=== PATIENT | male | born 1975 | race Caucasian/White ===

== ENCOUNTER 2016-07-19 22:16 | Emergency (ER) | payer OTHER ==
--- NOTE | 2016-07-19 22:47 | DIAGNOSTIC IMAGING REPORT ---
PROCEDURE: XR CHEST 1 VIEW INDICATION: CHEST PAIN, initial encounter TECHNIQUE: Portable AP view 10:32 p.m. COMPARISON: None. FINDINGS: Lungs are clear. Mild cardiomegaly. Mediastinum and pulmonary vessels are normal. Thorax is normal. IMPRESSION: 1. Mild cardiomegaly .
--- NOTE | 2016-07-20 02:06 | ED CLINICAL REPORT ---
Clinical Report - Physicians/Mid Levels [facility] [address] [place] [address] 07/19/2016 22:16 Patient: REJI MAYS Arrived- By private vehicle. Historian- patient. HISTORY OF PRESENT ILLNESS Chief Complaint: CHEST PAIN. This started today and is still present and worsening. It was abrupt in onset and has been constant but is not gone now. Onset during rest. At its maximum, severity described as moderate. When seen in the E.D., severity described as moderate. Modifying factors- worsened by supine position. Relieved by upright position. No nausea, vomiting or diaphoresis. He has had difficulty breathing. The patient has had additional chest pain. Similar symptoms previously: None. Recent medical care: Not recently seen/assessed. REVIEW OF SYSTEMS No fever or chills. All systems otherwise negative, except as recorded above. PAST HISTORY See nurses notes. Medications: Reglan Oral. PriLOSEC Oral. Lisinopril Oral. Allergies: Hydrocodone. Mild(itching). SOCIAL HISTORY Smoker- current status unknown. History of occasional drug use: marijuana. No alcohol use. No recent travel. Is a local resident. FAMILY HISTORY History of heart disease in multiple family members (not sure exactly what kind of heart disease. possible CHF and [place].). No history of aortic aneurysm or dissection. ADDITIONAL NOTES The nursing notes have been reviewed. PHYSICAL EXAM Vital Signs: 07/19/2016 22:19 BP: 108/81. HR: 106. RR: 20. O2 saturation: 98%. Pain level now: 8/10. Blood pressure normal. Oxygen saturation normal. Appearance: Alert. Oriented X3. Patient in mild distress. Eyes: Pupils equal, round and reactive to light. Eyes normal inspection. ENT: Ears normal. Nose normal. Pharynx normal. Neck: Normal inspection. Neck supple. CVS: Normal heart rate and rhythm. Heart sounds normal. Pulses normal. Respiratory: No respiratory distress. Breath sounds normal. Chest nontender. No rales, rhonchi or wheezes. Abdomen: Soft and nontender. Bowel sounds normal. No organomegaly. No mass. Back: Normal external inspection. Skin: Skin warm and dry. Normal skin color. No rash. Normal skin turgor. Extremities: Extremities exhibit normal ROM. No clubbing present or lower extremity edema. No calf tenderness. No lower extremity edema. Neuro: Oriented X 3. No motor deficit. No sensory deficit. LABS, X-RAYS, AND EKG EKG: No acute ischemia. Wide-complex tachycardia. Sinus tachycardia. Normal P waves. Normal SARIKA. Normal QRS complex. LBBB (162). Normal axis. appropriate discordance. does not meet brugada criteria. Changes present when compared to prior EKG. (January 21, 2009 new LBBB since then). The study has been interpreted contemporaneously by me. The study has been independently viewed by me. The EKG appears to be a good tracing. Chest X-ray: Mild vascular congestion present. Cardiomegaly. No infiltrate. No fracture. No bony lesion present. (possible mild heart failure. No consolidations.). Views: PA and lateral. The X-rays were independently viewed by me and interpreted contemporaneously by me. Chest CT: (right pleural effusion. pulmonary congestion. signs of heart failure. no PE.). Chest CT performed with contrast. The study was independently viewed by me and interpreted by the radiologist. The study was discussed with the radiologist (via fax). Laboratory Tests: CBC w Diff: (ANGE: 07/19/2016 22:25) ( MsgRcvd 07/19/2016 22:40) Final results Test Result Flag Units (Reference) WHITE BLOOD COUNT 9.5 K/uL (4.5-11.5) RED BLOOD COUNT 4.13 L M/uL (4.50-5.90) HEMOGLOBIN 13.6 gm/dL (13.5-17.5) HEMATOCRIT 41.0 % (41.0-53.0) MEAN CELL VOLUME 99 fL (80-100) MEAN CORPUSCULAR HGB 33 pg (26-34) MEAN CORPUSCULAR HGB CONC 33 g/dL (31-37) RED CELL DISTRIBUTION WIDTH 13.8 % (11.6-14.8) PLATELET COUNT 364 K/uL (150-400) NEUTROPHIL % 69.4 % (50-75) LYMPH % 24.3 L % (25-40) MONO % 5.5 % (3-14) EOSINOPHIL % 0.4 % (0-4) BASOPHIL % 0.4 % (0-2) [id number]: (ANGE: 07/19/2016 22:25) ( [facility] 07/19/2016 23:25) Final results Test Result Flag Units (Reference) D-DIMER QUANTITATIVE 2.20 H ug/mLFEU (0.27-0.52) The primary value of this quantitative assay relates toits negative predictive value (i.e. exclusion) of pulmonaryembolism/deep vein thrombosis/DIC.Elevated levels of d-dimer may also occur with:, age, cancer, inflammation, liver disease,post-op, infection, hematoma, coronary disease, peripheralarteriopathy, bleeding disorders and thrombolytic treatment.Results should be correlated with other clinical andradiological data.Testing Methodology: Latex Immunoassay BNP: (ANGE: 07/19/2016 22:25) ( [facility] 07/19/2016 23:35) Final results Test Result Flag Units (Reference) B-TYPE NATRIURETIC PEPTIDE 1310 H pg/ml (5-100) CHEM 13 PANEL: (ANGE: 07/19/2016 22:25) ( [facility] 07/19/2016 23:06) Final results Test Result Flag Units (Reference) GLUCOSE 105 mg/dL (70-110) BUN 8 mg/dL (7-18) CREATININE 0.7 mg/dL (0.6-1.3) Estimated GFR >60 mL/min Estimated GFR- >60 mL/min Note: Persistent reduction over 3 months in eGFR<60 mL/min/1.73 m2 defines CKD. Patients with eGFR values>=60 mL/min/1.73 m2 may also have CKD if evidence ofpersistent proteinuria. Additional information may be foundat [email or web address].org. SODIUM 141 mmol/L (136-145) POTASSIUM 4.3 mmol/L (3.5-5.1) CHLORIDE 103 mmol/L (98-107) CARBON DIOXIDE 29 mmol/L (21-32) CALCIUM 8.7 mg/dL (8.5-10.1) TOTAL PROTEIN 8.2 g/dL (6.4-8.2) ALBUMIN 3.9 g/dL (3.3-5.0) BILIRUBIN, TOTAL 0.4 mg/dL (0.0-1.0) ALKALINE PHOSPHATASE 130 H U/L (46-116) AST (SGOT) 65 H U/L (15-37) ALT (SGPT) 59 U/L (12-78) MAGNESIUM 1.8 mg/dL (1.8-2.4) CPK 81 U/L (24-260) TROPONIN I <0.05 ng/mL (0.00-1.5) TROPONIN REFERENCE RANGE:<0.1 NEGATIVE0.1-1.5 INDETERMINANT>1.5 POSITIVE . PROGRESS AND PROCEDURES Course of Care: The patients is a 41 yo male with hx of smoking presenting for evaluation of shortness of breath and chest pain. patient with symptoms that started last night. States it has not gotten better since then. Differential diagnosis includes CHF, AMI, and PE. Patient agreeable to treatment and plan. EKG shows new onset LBBB from last EKG in 2008. No known cardiac history. Patient hypoxic on room air. Goes down to 80s. Needs sup O2. Patient found to have elevated BNP and d-dimer. CT scan ordered. Unable to give nitro due to BP. Will monitor. CT scan does not show signs of PE or disection but does confirm CHF. Patient informed of findings. Consult placed out to cardiology. Very unusual for patient's age. Cardiology over at [place] recommended transfer and lasix. Spoke with hospitalist as well who was agreeable to the plan. Informed written consent obtained. Call back from house sup. about bed status. No tele beds avaiable. Process was repeated with [facility] who have accepting hospitalist, consulting manager plumbing, and available beds. Patient informed of the change and are agreeable. Spoke with family and patient about work up, diagnosis, and plan of care. Critical care performed (65 minutes). Time is exclusive of separately billable procedures. Time includes: direct patient care, patient reassessment, coordination of patient care, interpretation of data (laboratory data and chest xrays), review of patient's medical records, medical consultation, family consultation regarding treatment decisions and documentation of patient care. Disposition: Benefits, risks and alternatives to transfer explained to patient and family. Transferred to [facility]. CLINICAL IMPRESSION 07/20/2016 03:35 BP: 104/60. HR: 90. RR: 22. O2 saturation: 96%. Pain level now: 4/10. acute new onset CHF Right pleural effusion new onset LBBB hypoxia, acute. (Electronically signed by Jorge Reese Dr. 07/22/2016 17:12)
--- NOTE | 2016-07-20 02:06 | ED CLINICAL REPORT ---
Clinical Report - Physicians/Mid Levels [facility] [address] [place] [address] 07/19/2016 22:16 Patient: REJI MAYS Arrived- By private vehicle. Historian- patient. HISTORY OF PRESENT ILLNESS Chief Complaint: CHEST PAIN. This started today and is still present and worsening. It was abrupt in onset and has been constant but is not gone now. Onset during rest. At its maximum, severity described as moderate. When seen in the E.D., severity described as moderate. Modifying factors- worsened by supine position. Relieved by upright position. No nausea, vomiting or diaphoresis. He has had difficulty breathing. The patient has had additional chest pain. Similar symptoms previously: None. Recent medical care: Not recently seen/assessed. REVIEW OF SYSTEMS No fever or chills. All systems otherwise negative, except as recorded above. PAST HISTORY See nurses notes. Medications: Reglan Oral. PriLOSEC Oral. Lisinopril Oral. Allergies: Hydrocodone. Mild(itching). SOCIAL HISTORY Smoker- current status unknown. History of occasional drug use: marijuana. No alcohol use. No recent travel. Is a local resident. FAMILY HISTORY History of heart disease in multiple family members (not sure exactly what kind of heart disease. possible CHF and [place].). No history of aortic aneurysm or dissection. ADDITIONAL NOTES The nursing notes have been reviewed. PHYSICAL EXAM Vital Signs: 07/19/2016 22:19 BP: 108/81. HR: 106. RR: 20. O2 saturation: 98%. Pain level now: 8/10. Blood pressure normal. Oxygen saturation normal. Appearance: Alert. Oriented X3. Patient in mild distress. Eyes: Pupils equal, round and reactive to light. Eyes normal inspection. ENT: Ears normal. Nose normal. Pharynx normal. Neck: Normal inspection. Neck supple. CVS: Normal heart rate and rhythm. Heart sounds normal. Pulses normal. Respiratory: No respiratory distress. Breath sounds normal. Chest nontender. No rales, rhonchi or wheezes. Abdomen: Soft and nontender. Bowel sounds normal. No organomegaly. No mass. Back: Normal external inspection. Skin: Skin warm and dry. Normal skin color. No rash. Normal skin turgor. Extremities: Extremities exhibit normal ROM. No clubbing present or lower extremity edema. No calf tenderness. No lower extremity edema. Neuro: Oriented X 3. No motor deficit. No sensory deficit. LABS, X-RAYS, AND EKG EKG: No acute ischemia. Wide-complex tachycardia. Sinus tachycardia. Normal P waves. Normal SARIKA. Normal QRS complex. LBBB (162). Normal axis. appropriate discordance. does not meet brugada criteria. Changes present when compared to prior EKG. (January 21, 2009 new LBBB since then). The study has been interpreted contemporaneously by me. The study has been independently viewed by me. The EKG appears to be a good tracing. Chest X-ray: Mild vascular congestion present. Cardiomegaly. No infiltrate. No fracture. No bony lesion present. (possible mild heart failure. No consolidations.). Views: PA and lateral. The X-rays were independently viewed by me and interpreted contemporaneously by me. Chest CT: (right pleural effusion. pulmonary congestion. signs of heart failure. no PE.). Chest CT performed with contrast. The study was independently viewed by me and interpreted by the radiologist. The study was discussed with the radiologist (via fax). Laboratory Tests: CBC w Diff: (ANGE: 07/19/2016 22:25) ( MsgRcvd 07/19/2016 22:40) Final results Test Result Flag Units (Reference) WHITE BLOOD COUNT 9.5 K/uL (4.5-11.5) RED BLOOD COUNT 4.13 L M/uL (4.50-5.90) HEMOGLOBIN 13.6 gm/dL (13.5-17.5) HEMATOCRIT 41.0 % (41.0-53.0) MEAN CELL VOLUME 99 fL (80-100) MEAN CORPUSCULAR HGB 33 pg (26-34) MEAN CORPUSCULAR HGB CONC 33 g/dL (31-37) RED CELL DISTRIBUTION WIDTH 13.8 % (11.6-14.8) PLATELET COUNT 364 K/uL (150-400) NEUTROPHIL % 69.4 % (50-75) LYMPH % 24.3 L % (25-40) MONO % 5.5 % (3-14) EOSINOPHIL % 0.4 % (0-4) BASOPHIL % 0.4 % (0-2) [id number]: (ANGE: 07/19/2016 22:25) ( [facility] 07/19/2016 23:25) Final results Test Result Flag Units (Reference) D-DIMER QUANTITATIVE 2.20 H ug/mLFEU (0.27-0.52) The primary value of this quantitative assay relates toits negative predictive value (i.e. exclusion) of pulmonaryembolism/deep vein thrombosis/DIC.Elevated levels of d-dimer may also occur with:, age, cancer, inflammation, liver disease,post-op, infection, hematoma, coronary disease, peripheralarteriopathy, bleeding disorders and thrombolytic treatment.Results should be correlated with other clinical andradiological data.Testing Methodology: Latex Immunoassay BNP: (ANGE: 07/19/2016 22:25) ( [facility] 07/19/2016 23:35) Final results Test Result Flag Units (Reference) B-TYPE NATRIURETIC PEPTIDE 1310 H pg/ml (5-100) CHEM 13 PANEL: (ANGE: 07/19/2016 22:25) ( [facility] 07/19/2016 23:06) Final results Test Result Flag Units (Reference) GLUCOSE 105 mg/dL (70-110) BUN 8 mg/dL (7-18) CREATININE 0.7 mg/dL (0.6-1.3) Estimated GFR >60 mL/min Estimated GFR- >60 mL/min Note: Persistent reduction over 3 months in eGFR<60 mL/min/1.73 m2 defines CKD. Patients with eGFR values>=60 mL/min/1.73 m2 may also have CKD if evidence ofpersistent proteinuria. Additional information may be foundat [email or web address]. SODIUM 141 mmol/L (136-145) POTASSIUM 4.3 mmol/L (3.5-5.1) CHLORIDE 103 mmol/L (98-107) CARBON DIOXIDE 29 mmol/L (21-32) CALCIUM 8.7 mg/dL (8.5-10.1) TOTAL PROTEIN 8.2 g/dL (6.4-8.2) ALBUMIN 3.9 g/dL (3.3-5.0) BILIRUBIN, TOTAL 0.4 mg/dL (0.0-1.0) ALKALINE PHOSPHATASE 130 H U/L (46-116) AST (SGOT) 65 H U/L (15-37) ALT (SGPT) 59 U/L (12-78) MAGNESIUM 1.8 mg/dL (1.8-2.4) CPK 81 U/L (24-260) TROPONIN I <0.05 ng/mL (0.00-1.5) TROPONIN REFERENCE RANGE:<0.1 NEGATIVE0.1-1.5 INDETERMINANT>1.5 POSITIVE . PROGRESS AND PROCEDURES Course of Care: The patients is a 41 yo male with hx of smoking presenting for evaluation of shortness of breath and chest pain. patient with symptoms that started last night. States it has not gotten better since then. Differential diagnosis includes CHF, AMI, and PE. Patient agreeable to treatment and plan. EKG shows new onset LBBB from last EKG in 2008. No known cardiac history. Patient hypoxic on room air. Goes down to 80s. Needs sup O2. Patient found to have elevated BNP and d-dimer. CT scan ordered. Unable to give nitro due to BP. Will monitor. CT scan does not show signs of PE or disection but does confirm CHF. Patient informed of findings. Consult placed out to cardiology. Very unusual for patient's age. Cardiology over at [facility] recommended transfer and lasix. Spoke with hospitalist as well who was agreeable to the plan. Informed written consent obtained. Call back from house sup. about bed status. No tele beds avaiable. Process was repeated with [facility] who have accepting hospitalist, consulting church musician, and available beds. Patient informed of the change and are agreeable. Spoke with family and patient about work up, diagnosis, and plan of care. Critical care performed (65 minutes). Time is exclusive of separately billable procedures. Time includes: direct patient care, patient reassessment, coordination of patient care, interpretation of data (laboratory data and chest xrays), review of patient's medical records, medical consultation, family consultation regarding treatment decisions and documentation of patient care. Disposition: Benefits, risks and alternatives to transfer explained to patient and family. Transferred to [facility]. CLINICAL IMPRESSION 07/20/2016 03:35 BP: 104/60. HR: 90. RR: 22. O2 saturation: 96%. Pain level now: 4/10. acute new onset CHF Right pleural effusion new onset LBBB hypoxia, acute. (Electronically signed by Jorge Reese Dr. 07/22/2016 17:12)
--- NOTE | 2016-07-20 02:06 | ED NURSING NOTES ---
Clinical Report - Nurses [facility] [address] [place] [address] 07/19/2016 22:16 Patient: REJI MAYS TRIAGE Triage time 22:Jul 19 2016. Acuity: LEVEL 3. Chief Complaint: CHEST PAIN and SHORTNESS OF BREATH. SEPSIS SCREEN: Sepsis Screen: negative. Negative (no infection suspected/documented). ZENIA COMA SCORE: Zenia Coma Scale: 15- eyes open spontaneously (4); best verbal response- oriented x 4 (5); best motor response- obeys commands (6). --22:24 Kiara Putnam 22:19 07/19/16. BP: 108/81. HR: 106. RR: 20. O2 saturation: 98% on room air. Pain level now: 8/10. Additional comments: Heavy pain . --22:24 Kiara Putnam. Weight: 63.5 kg stated. Height/Length: 68 inches Per Patient. BMI: 21.3. --22:23 Kiara Putnam. Medications Lisinopril Oral. --22:21 Kiara Putnam PriLOSEC Oral. --22:21 Kiara Putnam Reglan Oral. --22:21 Kiara Putnam. Allergies Hydrocodone. Mild(itching) --22:21 Kiara Putnam. History Arrived by private vehicle. Historian: patient. Accompanied by family. Primary physician ([facility]). This started yesterday. ( Patient reports he began having chest pain and shortness of breath yesterday. He states that he has been sick so he thought maybe it had to do with that. He states that it has not been relieved and he began to feel very short of breath today.). He has had difficulty breathing. PAST MEDICAL HX: Hypertension. Immunizations: up-to-date. SOCIAL HX: Light tobacco smoker (cigarette)- less than 1/2 a pack per day. Occasional alcohol use. No drug use. No infectious disease exposure. ABUSE ASSESSMENT: No report of abuse. FALL RISK ASSESSMENT: Fall risk assessment completed. No fall risk identified. NUTRITIONAL RISK ASSESSMENT: The nutritional risk assessment revealed no deficiencies. FUNCTIONAL ASSESSMENT: Functional assessment: no impairments noted. LEARNING NEEDS ASSESSMENT: The learning needs assessment revealed no barriers. SKIN INTEGRITY ASSESSMENT: Skin integrity risk assessment completed. No skin integrity risk identified. --:24 Kiara Putnam. PROBLEMS: Cyclical vomiting syndrome. Hypertension. --22: Kiara Putnam. ADDITIONAL SURGERIES: Cholecystectomy. Hand surgery . Hernia inguinal . Tympanostomy Tubes. --22: Kiara Putnam. Interventions ID band on patient. To treatment room. --:24 Kiara Putnam. PHYSICAL ASSESSMENT :07/19/16. Patient gowned. GENERAL / NEURO / PSYCH: Alert. Oriented X 4. Appears in pain. HEENT: Mucous membranes are pink. RESPIRATORY: Respirations not labored. CVS: Cardiac rhythm: sinus rhythm; (108). EXTREMITIES: No lower extremity edema. SKIN: Skin is warm and dry. --: Kiara Putnam. NURSING PROGRESS NOTES Oxygen administered by nasal cannula at 2 liters. monitor worker, pulse oximeter and NIBP monitor placed on patient; monitor alarms on. Patient gowned. Reassurance given to the patient and parent(s). Two patient identifiers checked. Call light placed in reach. Side rails up x 1. Bed placed in lowest position. Brakes of bed on. Patient ready for evaluation- chart flagged and ED physician notified. --: Kiara Putnam :07/19/2016 Site #1 started via IV in the right forearm with an 20g angiocath, with aseptic technique and good blood return; one attempt. Blood drawn: rainbow set. Labeled in the presence of the patient and sent to the lab. Saline lock flushed with 10 mL saline (Started by Konrad Wayne RN). --: Kiara Putnam EKG time: (:Jul 19 2016). EKG was performed by a batool and shown to the ED physician. --: Kiara Putnam 07/19/2016 Aspirin PO Tablets 325 mg given. Allergies verified and confirmed 5 rights. --: Kiara Putnam Patient ID band checked for patient name and birthdate: patient confirmed. Blood samples drawn from the right forearm peripheral IV site by nurse per protocol ; labeled in presence of the patient and sent to lab: rainbow set: cardiac enzymes (1st set). Additional blood sent to lab. Line flushed with 10 mL normal saline post blood draw. --22:29 Kiara Putnam ( Radiology at bedside with portable xray). --22:33 Kiara Putnam 23:04 07/19/16. BP: 102/74. HR: 94. RR: 20. O2 saturation: 93% on nasal cannula at 2 liters/minute. --23:05 Kiara Putnam 23:23 07/19/16. BP: 95/68. HR: 95. RR: 20. O2 saturation: 90% on nasal cannula at 2 liters/minute. Pain level now: 01/12. --23:26 Kiara Putnam 23:26 07/19/16. Oxygen administered by nasal cannula at 4 liters. --23:26 Kiara Putnam ( Patient assisted up to restroom). --00:18 Kiara Putnam Patient transported to CT by stretcher with tech. (00:30 Jul 20 2016). --00:30 Kiara Putnam Patient returned from CT by stretcher with tech. (00:43 Jul 20 2016). --00:43 Kiara Putnam 00:44 07/20/16. BP: 101/73. HR: 93. RR: 20. O2 saturation: 95% on nasal cannula at 2 liters/minute. Pain level now: 01/12. --00:48 Kiara Putnam 01:27 07/20/16. BP: 95/62. HR: 92. O2 saturation: 91% on room air. --01:27 Kiara Putnam 02:05 07/20/2016 Lasix IVP 20 mg given over 3 minute(s) via site #1. Allergies verified and confirmed 5 rights. IV patency established. IV site checked: no pain, redness, or swelling. IV flushed thoroughly pre- and post-medication administration. IVP given by RN. --02:05 Kiara Putnam 02:45 07/20/2016 Toradol IVP 30 mg given over 1 minute(s) via site #1. Allergies verified and confirmed 5 rights. IV patency established. IV site checked: no pain, redness, or swelling. IV flushed thoroughly pre- and post-medication administration. IVP given by RN. --02:45 Kiara Putnam ( 750 ml of urine output). --03:12 Kiara Putnam. DISPOSITION / DISCHARGE 02:58 07/20/16. BP: 107/68. HR: 95. RR: 20. O2 saturation: 97% on nasal cannula at 2 liters/minute. Pain level now: 11/12. --02:59 Kiara Putnam Condition at departure: stable. Transferred to [facility]. Summary of care provided to transfer facility via paper and fax. Report was given to a nurse via a phone call. Report included patient's care, treatment, medications, reviewed medication reconcilliation, and condition (including any recent changes or anticipated changes). All questions were answered. Report was acknowledged and care was transferred. (Maury Ramirez RN). Patient's personal items include: shirt and pants; items were placed in belongings bag, given to the patient and transported with the patient. --03:11 Kiara Putnam 03:12 07/20/2016 Site #[address] upon transfer; patent, no pain and no signs of infection or infiltration. Converted to saline lock and flushed with 10 mL saline; flushes easily. --03:12 Kiara Putnam 03:35 07/20/16. BP: 104/60. HR: 90. RR: 22. O2 saturation: 96% on nasal cannula at 2 liters/minute. Pain level now: 10/13. --03:35 Kiara Putnam Transported via ambulance by transport team with monitor, IV and O2. ( Report given to transport team, ALFREDA Neal). --03:36 Kiara Putnam. Locked/Released at 07/20/2016 20:26 by Kiara Putnam,
--- NOTE | 2016-07-20 02:06 | ED ORDER SUMMARY ---
..... Patient: REJI MAYS OrderSheet [facility] VisitID: [id number] [address] [place] [address] 41y, M Registration Date/Time: 07/19/2016 ORDER SHEET Weight: 63.5 kg (stated) Allergies: Hydrocodone GENERAL ORDERS: Chest 1V Urgent (22:27 07/19/2016 HSoule per protocol) (Ack 22:34 JDeElena R.N.) (22:38 Issac) Laborer Steel Handling (Continuous) (22:07/19/2016 HSoule per protocol) (22:27 HSoule) Cardiac Panel Stat (:07/19/2016 HSoule per protocol) (Cancelled: Duplicate Order22:34 Demian Lima) (Sent 22:34 JDeElena R.N.) (22:34 JDeElena R.N.) Oxygen (2 L/min) (NC) (22:07/19/2016 HSoule per protocol) (22:27 HSoule) EKG - ER Stat (22:07/19/2016 HSoule per protocol) (22:27 HSoule) Troponin-I Urgent (22:34 07/19/2016 Demian Lima) (23:29 HSoule) D-Dimer Urgent (23:07/19/2016 Demian Lima) (23:29 HSoule) BNP Urgent (23:10 07/19/2016 Demian Lima) (Ack 23:29 HSoule) (23:55 HSoule) CTA Thorax w Cont (No) (GFR > 60) Urgent (00:19 07/20/2016 Demian Lima) (1:05 RFay) MEDICATION ORDERS: Aspirin PO 325 mg (Do not crush or chew, NOW) (22:27 07/19/2016 HSoule per protocol) (Ack 22:27 HSoule) (22:28 HSoule) NitroGLYCERIN SL 0.4 mg (once only. hold for BP < 100 systolic or < 60 diastolic) (23:09 07/19/2016 Demian Lima) (Ack 23:21 HSoule) (Hold 23:23 HSoule) (Cancelled: Change in patient condition2:06 HSoule) IV FLUIDS: IV Saline Lock (22:27 07/19/2016 HSoule per protocol) (22:27 HSoule) Lasix IV 20 mg (NOW) (01:49 07/20/2016 Demian Lima) (Ack 1:50 HSoule) (2:05 HSoule) Toradol IV 30 mg (NOW) (02:45 07/20/2016 HSoule verbal order read back to Demian Lima) (2:45 HSoule) ORDER SHEET NOTES: [Electronically signed by Kiara Putnam (20:26 07/20/2016)] [Electronically signed by Jorge Reese Dr. (17:12 07/22/2016)] [Electronically locked/signed by Kiara Putnam (20:26 07/20/2016)]
--- NOTE | 2016-07-20 02:06 | ED ORDER SUMMARY ---
..... Patient: REJI MAYS OrderSheet [facility] VisitID: [id number] [address] [place] [address] 41y, M Registration Date/Time: 07/19/2016 ORDER SHEET Weight: 63.5 kg (stated) Allergies: Hydrocodone GENERAL ORDERS: Chest 1V Urgent (22:27 07/19/2016 HSoule per protocol) (Ack 22:34 JDeElena R.N.) (22:38 Issac) Landing Support Specialist (Continuous) (22:07/19/2016 HSoule per protocol) (22:27 HSoule) Cardiac Panel Stat (:07/19/2016 HSoule per protocol) (Cancelled: Duplicate Order22:34 Demian Lima) (Sent 22:34 JDeElena R.N.) (22:34 JDeElena R.N.) Oxygen (2 L/min) (NC) (22:07/19/2016 HSoule per protocol) (22:27 HSoule) EKG - ER Stat (22:07/19/2016 HSoule per protocol) (22:27 HSoule) Troponin-I Urgent (22:34 07/19/2016 Demian Lima) (23:29 HSoule) D-Dimer Urgent (23:07/19/2016 Demian Lima) (23:29 HSoule) BNP Urgent (23:10 07/19/2016 Demian Lima) (Ack 23:29 HSoule) (23:55 HSoule) CTA Thorax w Cont (No) (GFR > 60) Urgent (00:19 07/20/2016 Demian Lima) (1:05 RFay) MEDICATION ORDERS: Aspirin PO 325 mg (Do not crush or chew, NOW) (22:27 07/19/2016 HSoule per protocol) (Ack 22:27 HSoule) (22:28 HSoule) NitroGLYCERIN SL 0.4 mg (once only. hold for BP < 100 systolic or < 60 diastolic) (23:09 07/19/2016 Demian Lima) (Ack 23:21 HSoule) (Hold 23:23 HSoule) (Cancelled: Change in patient condition2:06 HSoule) IV FLUIDS: IV Saline Lock (22:27 07/19/2016 HSoule per protocol) (22:27 HSoule) Lasix IV 20 mg (NOW) (01:49 07/20/2016 Demian Lima) (Ack 1:50 HSoule) (2:05 HSoule) Toradol IV 30 mg (NOW) (02:45 07/20/2016 HSoule verbal order read back to Demian Lima) (2:45 HSoule) ORDER SHEET NOTES: [Electronically signed by Kiara Putnam (20:26 07/20/2016)] [Electronically signed by Jorge Reese Dr. (17:12 07/22/2016)] [Electronically locked/signed by Kiara Putnam (20:26 07/20/2016)]
--- NOTE | 2016-07-20 05:42 | DIAGNOSTIC IMAGING REPORT ---
PROCEDURE: CTA THORAX WITH CONTRAST INDICATION: CHEST PAIN, SOB, ELEVATED D-DIMER TECHNIQUE: 95 ml of Isovue 370 was injected intravenously and axial images were obtained of the entire thorax with 3D sagittal and coronal MIP reconstructions. Preliminary report provided to the to the MD Kenneth ([facility]). COMPARISON: None. FINDINGS: There is mild to moderate cardiomegaly with mild pulmonary congestion and interstitial edema. Small right pleural effusion. There are mild parenchymal changes in the right perihilar region and right lung base. Pulmonary vessels are normal and there is no evidence of pulmonary embolus. Mediastinum is normal. Thorax is normal. IMPRESSION: 1. Mild to moderate cardiomegaly with mild congestive heart failure /pulmonary edema. 2. Associated small right pleural effusion. 3. Mild parenchymal changes in right mid and lower lung consistent with alveolar edema (versus early pneumonia - - e.g., aspiration, bacterial, Mycoplasma). 4. No evidence of pulmonary embolus. 5. Findings discussed with Dr. Jorge Reese. All CT scans at this facility use dose modulation, iterative reconstruction, and/or weight-based dosing when appropriate to reduce radiation dose to as low as reasonably achievable.
--- NOTE | 2016-07-22 17:12 | ED MED RECONCILIATION SUMMARY ---
Patient: REJI MAYS Medication Reconciliation Report [facility] VisitID: [id number] [address] [place] [address] 41y, M Registration Date/Time: 07/19/2016 Weight: 63.5 kg Height/Length: 68 in. BMI: 21.3 ALLERGIES: Hydrocodone The patient's Home Medications are listed below: THE FOLLOWING MEDICATIONS NEED TO BE RECONCILED: Lisinopril Oral PriLOSEC Oral Reglan Oral The source(s) of the original Home Medication information: Not obtained. The following Medications were given to the patient in the Emergency Department: Aspirin [PO] PO 325 mg, administered: 07/19/2016 10:28:00 PM Lasix [IVP] IVP 20 mg, administered: 07/20/2016 2:05:00 AM Toradol [IVP] IVP 30 mg, administered: 07/20/2016 2:45:00 AM The following Medications were prescribed to the patient: None.
--- NOTE | 2016-07-22 17:12 | ED MED RECONCILIATION SUMMARY ---
Patient: REJI MAYS Medication Reconciliation Report [facility] VisitID: [id number] [address] [place] [address] 41y, M Registration Date/Time: 07/19/2016 Weight: 63.5 kg Height/Length: 68 in. BMI: 21.3 ALLERGIES: Hydrocodone The patient's Home Medications are listed below: THE FOLLOWING MEDICATIONS NEED TO BE RECONCILED: Lisinopril Oral PriLOSEC Oral Reglan Oral The source(s) of the original Home Medication information: Not obtained. The following Medications were given to the patient in the Emergency Department: Aspirin [PO] PO 325 mg, administered: 07/19/2016 10:28:00 PM Lasix [IVP] IVP 20 mg, administered: 07/20/2016 2:05:00 AM Toradol [IVP] IVP 30 mg, administered: 07/20/2016 2:45:00 AM The following Medications were prescribed to the patient: None.
--- NOTE | 2016-07-22 17:12 | ED DISCHARGE INSTRUCTIONS ---
Patient: REJI MAYS General Instructions [facility] VisitID: [id number] [address] [place] [address] 41y, M Registration Date/Time: 07/19/2016 07/20/2016 03:35 BP: 104/60. HR: 90. RR: 22. O2 saturation: 96%. Pain level now: 4/10. acute new onset CHF Right pleural effusion new onset LBBB hypoxia, acute. (Electronically signed by Jorge Reese Dr. 07/22/2016 17:12)
--- NOTE | 2016-07-22 17:12 | ED MAR SUMMARY ---
..... Medication Administration Record [facility] [address] [place] [address] Patient: REJI MAYS Visit ID: [id number] 41y, M Weight: 63.5 kg Height/Length: 68 in BMI: 21.3 ALLERGIES: Hydrocodone Given 22:28 07/19/2016 Kiara Putnam, Medication Administered: ASPIRIN [PO], Dose: 325 mg Tablets PO. Medication Ordered: Aspirin PO 325 mg (Do not crush or chew, NOW). Given 02:05 07/20/2016 Kiara Putnam, Medication Administered: LASIX [IVP], Dose: 20 mg IVP over 3 minute(s), Site: #1 right forearm. Medication Ordered: Lasix IV 20 mg (NOW). Given 02:45 07/20/2016 Kiara Putnam, Medication Administered: TORADOL [IVP], Dose: 30 mg IVP over 1 minute(s), Site: #1 right forearm. Medication Ordered: Toradol IV 30 mg (NOW).
--- NOTE | 2016-07-22 17:12 | ED DISCHARGE INSTRUCTIONS ---
Patient: REJI MAYS General Instructions [facility] VisitID: [id number] [address] [place] [address] 41y, M Registration Date/Time: 07/19/2016 07/20/2016 03:35 BP: 104/60. HR: 90. RR: 22. O2 saturation: 96%. Pain level now: 4/10. acute new onset CHF Right pleural effusion new onset LBBB hypoxia, acute. (Electronically signed by Jorge Reese Dr. 07/22/2016 17:12)
--- NOTE | 2016-07-22 17:12 | ED MAR SUMMARY ---
..... Medication Administration Record [facility] [address] [place] [address] Patient: REJI MAYS Visit ID: [id number] 41y, M Weight: 63.5 kg Height/Length: 68 in BMI: 21.3 ALLERGIES: Hydrocodone Given 22:28 07/19/2016 Kiara Putnam, Medication Administered: ASPIRIN [PO], Dose: 325 mg Tablets PO. Medication Ordered: Aspirin PO 325 mg (Do not crush or chew, NOW). Given 02:05 07/20/2016 Kiara Putnam, Medication Administered: LASIX [IVP], Dose: 20 mg IVP over 3 minute(s), Site: #1 right forearm. Medication Ordered: Lasix IV 20 mg (NOW). Given 02:45 07/20/2016 Kiara Putnam, Medication Administered: TORADOL [IVP], Dose: 30 mg IVP over 1 minute(s), Site: #1 right forearm. Medication Ordered: Toradol IV 30 mg (NOW).
== END 2016-07-20 03:36 | disposition short-term general hospital (02) ==
LOC: ED SRH 22:16
DX: I50.9 Heart failure, unspecified (principal); I44.7 Left bundle-branch block, unspecified; R09.02 Hypoxemia; I10 Essential (primary) hypertension; F17.210 Nicotine dependence, cigarettes, uncomplicated; Z88.5 Allergy status to narcotic agent
CPT/HCPCS: 90100; 90616; 91320; 91556; 92610; 92720; 95059

== ENCOUNTER 2016-11-12 15:59 | Emergency (ER) | payer OTHER ==
--- NOTE | 2016-11-12 20:40 | ED CLINICAL REPORT ---
Clinical Report - Physicians/Mid Levels [facility] [address] [place] [address] 11/12/2016 15:58 Patient: REJI MAYS Time Seen: 16:17 Nov 12 2016. Arrived- By private vehicle. Historian- patient. CPT: ER phys charges level 4 (#[id number]). HISTORY OF PRESENT ILLNESS Chief Complaint: ABDOMINAL PAIN and VOMITING. This started yesterday and is still present. At its maximum, severity described as moderate. When seen in the E.D., severity described as moderate. Modifying factors. Not worsened by anything. Not relieved by anything. It is described as cramping and it is described as located in the periumbilical area and radiating. The patient has had nausea and vomiting. Similar symptoms previously: Several times, as bad. Diagnosis: (cyclic vomiting.). Recent medical care: The patient was seen recently at another facility in the emergency department ([facility]). REVIEW OF SYSTEMS No constipation, black stools, hematemesis, difficulty with urination or pain with urination. No urinary frequency, fever, sore throat, chest pain or difficulty breathing. No cough, joint pain, skin rash, chills or back pain. Abdominal wall pain on the right due to vomiting. All systems otherwise negative, except as recorded above. PAST HISTORY Congestive Heart Failure. Cyclical vomiting syndrome. Has seen GI. Has had EGD and workup by gastroenterology. Was told has a cyclic vomiting syndrome. Hypertension. Withdrawal from narcotics and alcohol. ADDITIONAL SURGERIES: Cholecystectomy. Hand surgery . Hernia inguinal . Tympanostomy Tubes. Medications: Bentyl Oral. Zofran Oral. Percocet Oral. Lasix Oral. Lisinopril Oral. Allergies: Hydrocodone. Phenergan. SOCIAL HISTORY Heavy tobacco smoker (cigarette)- less than 1 pack per day. ADDITIONAL NOTES The nursing notes have been reviewed. PHYSICAL EXAM Vital Signs: 11/12/2016 16:13 BP: 168/111. HR: 120. RR: 28. O2 saturation: 98%. Temp: 97.5 F. Appearance: Alert. Eyes: Eyes normal inspection. ENT: Dry mucous membranes present. Pharynx normal. Neck: Normal inspection. Neck supple. No meningeal signs. CVS: Tachycardia. Heart sounds normal. Pulses normal. Respiratory: No respiratory distress. Breath sounds normal. Chest nontender. Abdomen: Soft. Moderate tenderness in the periumbilical area with guarding present (Also over the lower abdominal wall on the right.). Abnormal bowel sounds: diminished. Back: Normal inspection. Skin: Skin warm. Normal skin color. No rash. Extremities: Extremities exhibit normal ROM. No lower extremity edema. Neuro: Oriented X 3. No motor deficit. No sensory deficit. Reflexes normal. LABS, X-RAYS, AND EKG Laboratory Tests: CBC w Diff: (ANGE: 11/12/2016 16:25) ( MsgRcvd 11/12/2016 16:39) Final results Test Result Flag Units (Reference) WHITE BLOOD COUNT 13.3 H K/uL (4.5-11.5) RED BLOOD COUNT 3.97 L M/uL (4.50-5.90) HEMOGLOBIN 13.0 L gm/dL (13.5-17.5) HEMATOCRIT 38.3 L % (41.0-53.0) MEAN CELL VOLUME 96 fL (80-100) MEAN CORPUSCULAR HGB 33 pg (26-34) MEAN CORPUSCULAR HGB CONC 34 g/dL (31-37) RED CELL DISTRIBUTION WIDTH 13.7 % (11.6-14.8) PLATELET COUNT 349 K/uL (150-400) NEUTROPHIL % 82.6 H % (50-75) LYMPH % 11.4 L % (25-40) MONO % 5.5 % (3-14) EOSINOPHIL % 0.1 % (0-4) BASOPHIL % 0.4 % (0-2) BNP: (ANGE: 11/12/2016 16:25) ( MsgRcvd 11/12/2016 19:08) Final results Test Result Flag Units (Reference) B-TYPE NATRIURETIC PEPTIDE 11.8 pg/ml (5-100) CMP: (ANGE: 11/12/2016 16:25) ( MsgRcvd 11/12/2016 16:58) Final results Test Result Flag Units (Reference) GLUCOSE 148 H mg/dL (70-110) BUN 6 L mg/dL (7-18) CREATININE 0.7 mg/dL (0.6-1.3) Estimated GFR >60 mL/min Estimated GFR- >60 mL/min Note: Persistent reduction over 3 months in eGFR<60 mL/min/1.73 m2 defines CKD. Patients with eGFR values>=60 mL/min/1.73 m2 may also have CKD if evidence ofpersistent proteinuria. Additional information may be foundat www.kidney.org. SODIUM 137 mmol/L (136-145) POTASSIUM 3.1 L mmol/L (3.5-5.1) CHLORIDE 96 L mmol/L (98-107) CARBON DIOXIDE 27 mmol/L (21-32) CALCIUM 9.3 mg/dL (8.5-10.1) TOTAL PROTEIN 8.9 H g/dL (6.4-8.2) ALBUMIN 4.3 g/dL (3.3-5.0) BILIRUBIN, TOTAL 0.7 mg/dL (0.0-1.0) ALKALINE PHOSPHATASE 121 H U/L (46-116) AST (SGOT) 26 U/L (15-37) ALT (SGPT) 33 U/L (12-78) . PROGRESS AND PROCEDURES Course of Care: IV NS Dilaudid 1 mg IV times 3 Ativan 1 mg IV Reglan 10 mg IV benadryl 50 mg IV Haldol 2 mg IV Dexamethasone 10 mg IV KCl 20 mEq IV Patient is stable. Symptoms much better. Patient/family counseled. Old medical records ordered. Disposition: Discharged. Condition: stable and improved. CLINICAL IMPRESSION Moderate dehydration Cyclic vomiting Out of pain medications. Hypokalemia due to vomiting. INSTRUCTIONS Take clear liquids only (frequent sips) for the next 12 hours until better. Advance diet as tolerated. (Stop lasix for 2 days.). Warnings: Further evaluation is necessary. SEDATIVE MEDICATION: You were given sedative medication during your visit. Do not drive or operate dangerous machinery. GENERAL WARNINGS: Return or contact your physician immediately if your condition worsens or changes unexpectedly, if not improving as expected, or if other problems arise. Your Current Medications: STOP TAKING THE FOLLOWING MEDICATIONS: Lasix Oral. CONTINUE TAKING THE FOLLOWING MEDICATIONS: Bentyl Oral. Lisinopril Oral. Percocet Oral. Zofran Oral. Prescription Medications: Oxycodone/APAP 5 mg/325 mg: take 1-2 tablets orally every 6 hours as needed for pain. Dispense fifteen (15). No refill. KCL 20 merari po q day for 3 days. Follow-up: Follow up with your doctor tomorrow. Call for an appointment. Reason for referral: Call for GI referral, out patient standing orders for vomiting and call retail sales assistant to get appropriate coumadin dose and follow up. Understanding of the discharge instructions verbalized by patient and parent. (Electronically signed by Srinivasa Kolb MD 11/13/2016 13:41)
--- NOTE | 2016-11-12 20:40 | ED NURSING NOTES ---
Clinical Report - Nurses [facility] [address] [place] [address] 11/12/2016 15:58 Patient: REJI MAYS TRIAGE Triage time 1605. Acuity: LEVEL 3. Chief Complaint: ABDOMINAL PAIN, NAUSEA and VOMITING. Alert. No acute distress. --16:17 Tiffanie Carpio 16:13 11/12/16. BP: 168/111. HR: 120. RR: 28. O2 saturation: 98%. Temp: 97.5 F. Pain level now 03/15. --16:17 Tiffanie Carpio. Weight: 63.5 kg. Height/Length: 69 inches. BMI: 20.7. --16:12 Tiffanie Carpio. Medications Lisinopril Oral. --16:14 Tiffanie Carpio Lasix Oral. --16:14 Tiffanie Carpio Percocet Oral. --16:14 Tiffanie Carpio Zofran Oral. --16:14 Tiffanie Carpio Bentyl Oral. --16:15 Tiffanie Carpio. Allergies Hydrocodone. --16:15 Tiffanie Carpio Phenergan. --16:15 Tiffanie Carpio. History Arrived by private vehicle. Historian: patient and family. Accompanied by family. This started yesterday. Treatment SUBMARINE ADVISORY TEAM WATCH OFFICER: (routine meds). SOCIAL HX: Heavy tobacco smoker (cigarette)- less than 1 pack per day. --16:17 Tiffanie Carpio. PROBLEMS: Congestive Heart Failure. Cyclical vomiting syndrome. Hypertension. --16:16 Tiffanie Carpio. ADDITIONAL SURGERIES: Cholecystectomy. Hand surgery . Hernia inguinal . Tympanostomy Tubes. --16:16 Tiffanie Caprio. Interventions ID band on patient. To treatment room. --16:17 Tiffanie Carpio. PHYSICAL ASSESSMENT Ambulatory to room. GENERAL / NEURO / PSYCH: Alert. Oriented X 4. Appears anxious and in distress. HEENT: Mucous membranes are pink. RESPIRATORY: Respirations not labored. Breath sounds within normal limits. CVS: Cardiac rhythm: sinus tachycardia. Capillary refill less than 2 seconds. GI / : The patient has had nausea. Emesis noted. Abdominal tenderness. Guarding present. SKIN: Skin is warm and dry. --16:18 Tiffanie Carpio. NURSING PROGRESS NOTES Reassurance given. Two patient identifiers checked. Call light placed in reach. Side rails up. Bed placed in lowest position. Brakes of bed on. Patient ready for evaluation- chart flagged. --16:18 Tiffanie Carpio 16:27 11/12/2016 Site #1 started via IV in the right antecubital space with an 22g angiocath, with aseptic technique and good blood return; one attempt. Blood drawn: rainbow set. Labeled in the presence of the patient and sent to the lab. Saline lock flushed with 10 mL saline. --16:27 Tiffanie Carpio 17:16 11/12/2016 Started bag #1 1000 mL IV Fluids IV NS (Saline); bolus of 1000 mL over 1 hour(s) via site #1. Allergies verified and confirmed 5 rights. IV patency established. IV site checked: no pain, redness, or swelling. IV flushed thoroughly pre- and post-medication administration. --17:16 Tiffanie Carpio 17:11/12/2016 Dilaudid (HYDROmorphone HCl PF) IVP 1 mg given. via site #1. Allergies verified, confirmed 5 rights and sedative warning given to the patient and patient's family. IV patency established. IV site checked: no pain, redness, or swelling. IV flushed thoroughly pre- and post-medication administration. IVP given by RN. --17:17 Tiffanie Carpio 17:11/12/2016 Ativan (LORazepam) IVP 1 mg given. via site #1. Allergies verified, confirmed 5 rights and sedative warning given to the patient and patient's family. IV patency established. IV site checked: no pain, redness, or swelling. IV flushed thoroughly pre- and post-medication administration. IVP given by RN. --17:17 Tiffanie Carpio 17:11/12/2016 Zofran (Ondansetron HCl) IVP 4 mg given. via site #1. Allergies verified and confirmed 5 rights. IV patency established. IV site checked: no pain, redness, or swelling. IV flushed thoroughly pre- and post-medication administration. IVP given by RN. --17:17 Tiffanie Carpio 17:59 11/12/16. BP: 136/93. HR: 106. RR: 16. O2 saturation: 99% on room air. Pain level now: 02/12. --18:00 Migel Parson R.N. 18:00 11/12/16. --18:00 Migel Parson R.N. 18:00 11/12/16. Patient and family informed about reason for wait and about plan of care. --18:00 Migel Parson R.N. 19:31 11/12/2016 Dilaudid (HYDROmorphone HCl PF) IVP 1 mg given. via site #1. Allergies verified, confirmed 5 rights and sedative warning given to the patient and patient's family. IV patency established. IV site checked: no pain, redness, or swelling. IV flushed thoroughly pre- and post-medication administration. IVP given by RN. --19: Tiffanie Carpio 19:11/12/2016 Dexamethasone IVP 2 mg given. via site #1. Allergies verified and confirmed 5 rights. IV patency established. IV site checked: no pain, redness, or swelling. IV flushed thoroughly pre- and post-medication administration. IVP given by RN. --19: Tiffanie Carpio 19:11/12/2016 Benadryl (DiphenhydrAMINE HCl) IVP 50 mg given. via site #1. Allergies verified, confirmed 5 rights and sedative warning given to the patient. IV patency established. IV site checked: no pain, redness, or swelling. IV flushed thoroughly pre- and post-medication administration. IVP given by RN. --19:31 Tiffanie Carpio 19:11/12/2016 Reglan (Metoclopramide HCl) IVP 10 mg given. via site #1. Allergies verified and confirmed 5 rights. IV patency established. IV site checked: no pain, redness, or swelling. IV flushed thoroughly pre- and post-medication administration. IVP given by RN. --19:31 Tiffanie Carpio 19:32 11/12/2016 HALDOL (Haloperidol Lactate) IVP 2 mg given. via site #1. Allergies verified, confirmed 5 rights and sedative warning given to the patient. IV patency established. IV site checked: no pain, redness, or swelling. IV flushed thoroughly pre- and post-medication administration. IVP given by RN. --19:32 Tiffanie Carpio 19:41 11/12/2016 Started 20 meq of KCL (Potassium Chloride) IVPB in bag #1 100 mL; at 50 mL/hr over 2 hour(s) via site #1 via IV pump. Allergies verified and confirmed 5 rights. IV patency established. IV site checked: no pain, redness, or swelling. IV flushed thoroughly pre- and post-medication administration. --19:41 Tiffanie Carpio 19:41 11/12/2016 IV Fluids IV NS Discontinued: bag #1 completed. Total amount infused: 1000 mL. IV patency established. IV site checked: no pain, redness, or swelling. IV flushed thoroughly. --19:41 Tiffanie Carpio 19:30 11/12/16. BP: 128/83. HR: 90. RR: 16. O2 saturation: 98%. Pain level now: 11/12. --20:14 Tiffanie Carpio Reassessment after medication administered. He is sleeping and has had no adverse reaction. Overall patient status is improved- he states feels better. Family informed about reason for wait and about plan of care. --20:14 Tiffanie Carpio 20:37 11/12/2016 Dilaudid (HYDROmorphone HCl PF) IVP 1 mg given. via site #1. Allergies verified, confirmed 5 rights and sedative warning given to the patient. IV patency established. IV site checked: no pain, redness, or swelling. IV flushed thoroughly pre- and post-medication administration. IVP given by RN. --20:37 Tiffanie Carpio 22:11/12/2016 Site #1 removed upon discharge. Pressure dressing applied. --22: Tiffanie Carpio 22:01 11/12/2016 KCL IVPB Discontinued: bag #2 completed upon discharge. Total amount infused: 100 mL. IV patency established. IV site checked: no pain, redness, or swelling. IV flushed thoroughly. --22:01 Tiffanie Carpio. DISPOSITION / DISCHARGE Departure time: 2200. Condition at departure: improved and stable. No learning barriers present. Discharge instructions provided and reviewed with the patient and parent. Reviewed medication(s). Patient and parent verbalized understanding. Written instructions provided in [place]. The patient was discharged by the physician. He was discharged home and accompanied by parent. He left the Emergency Department ambulatory and via private vehicle. Parent driving. --22:02 Tiffanie Carpio 22:01 11/12/16. BP: 138/83. HR: 80. RR: 18. O2 saturation: 98%. Pain level now 5/10. --22:02 Tiffanie Carpio. Locked/Released at 11/12/2016 22:02 by Tiffanie Carpio,
--- NOTE | 2016-11-12 20:40 | ED ORDER SUMMARY ---
..... Patient: REJI MAYS OrderSheet [facility] VisitID: [id number] [place] [address] 41y, M Registration Date/Time: 11/12/2016 ORDER SHEET Weight: 63.5 kg Allergies: Hydrocodone, Phenergan GENERAL ORDERS: CBC w Diff Urgent (16:28 11/12/2016 EBmina per protocol) (16:28 EBonham) CMP Urgent (16:28 11/12/2016 EBonham per protocol) (16:28 EBonham) Old Records (skagit) (16:53 11/12/2016 Jailene HUMPHREY) (Ack 16:57 TBergley) (17:54 TBergley) BNP Urgent (18:34 11/12/2016 Jailene HUMPHREY) (Ack 18:36 TBergley) (18:48 TBergley) MEDICATION ORDERS: IV FLUIDS: IV NS : initial bolus 1000 mL (1000 mL/hr), then 1000 mL/hr for X1 (NOW); Routine (16:53 11/12/2016 Jailene HUMPHREY) (17:17 EBonjolanta) Dilaudid IV 1 mg (NOW) (16:56 11/12/2016 Jailene HUMPHREY) (17:17 EBonham) Ativan IV 1 mg (NOW) (16:56 11/12/2016 Jailene HUMPHREY) (17:17 EBonjolanta) Zofran IV 4 mg (NOW) (16:56 11/12/2016 Jailene HUMPHREY) (17:17 EBonham) Haldol IV 2 mg (NOW) (18:57 11/12/2016 Jailene HUMPHREY) (Ack 19:00 Polo) (19:32 EBonjolanta) Reglan IV 10 mg (NOW) (18:57 11/12/2016 Jailene HUMPHREY) (Ack 19:00 Polo) (19:31 EBonjolanta) Benadryl IV 50 mg (NOW) (18:57 11/12/2016 Jailene HUMPHREY) (Ack 19:00 Polo) (19:31 EBonham) Dexamethasone IV 10 mg (NOW) (18:57 11/12/2016 Jailene HUMPHREY) (Ack 19:00 Polo) (19:[facility] Dilaudid IV 1 mg (NOW) (18:57 11/12/2016 Jailene HUMPHREY) (Ack 19:00 Polo) (19:31 [facility] KCl IV 20 meq/100mL (Run no faster than 10 units/hr, Run no faster than 10 mEq/hr) (19:37 11/12/2016 Jailene HUMPHREY) (19:41 [facility]) Dilaudid IV 1 mg (NOW) (20:33 11/12/2016 Jailene HUMPHREY) (20:37 [facility]) ORDER SHEET NOTES: [Electronically signed by Tiffanie Carpio (22:02 11/12/2016)] [Electronically signed by Srinivasa Kolb MD (13:41 11/13/2016)] [Electronically locked/signed by Tiffanie Carpio (22:02 11/12/2016)]
--- NOTE | 2016-11-12 20:40 | ED CLINICAL REPORT ---
Clinical Report - Physicians/Mid Levels [facility] [address] [place] [address] 11/12/2016 15:58 Patient: REJI MAYS Time Seen: 16:17 Nov 12 2016. Arrived- By private vehicle. Historian- patient. CPT: ER phys charges level 4 (#[id number]). HISTORY OF PRESENT ILLNESS Chief Complaint: ABDOMINAL PAIN and VOMITING. This started yesterday and is still present. At its maximum, severity described as moderate. When seen in the E.D., severity described as moderate. Modifying factors. Not worsened by anything. Not relieved by anything. It is described as cramping and it is described as located in the periumbilical area and radiating. The patient has had nausea and vomiting. Similar symptoms previously: Several times, as bad. Diagnosis: (cyclic vomiting.). Recent medical care: The patient was seen recently at another facility in the emergency department ([facility]). REVIEW OF SYSTEMS No constipation, black stools, hematemesis, difficulty with urination or pain with urination. No urinary frequency, fever, sore throat, chest pain or difficulty breathing. No cough, joint pain, skin rash, chills or back pain. Abdominal wall pain on the right due to vomiting. All systems otherwise negative, except as recorded above. PAST HISTORY Congestive Heart Failure. Cyclical vomiting syndrome. Has seen GI. Has had EGD and workup by gastroenterology. Was told has a cyclic vomiting syndrome. Hypertension. Withdrawal from narcotics and alcohol. ADDITIONAL SURGERIES: Cholecystectomy. Hand surgery . Hernia inguinal . Tympanostomy Tubes. Medications: Bentyl Oral. Zofran Oral. Percocet Oral. Lasix Oral. Lisinopril Oral. Allergies: Hydrocodone. Phenergan. SOCIAL HISTORY Heavy tobacco smoker (cigarette)- less than 1 pack per day. ADDITIONAL NOTES The nursing notes have been reviewed. PHYSICAL EXAM Vital Signs: 11/12/2016 16:13 BP: 168/111. HR: 120. RR: 28. O2 saturation: 98%. Temp: 97.5 F. Appearance: Alert. Eyes: Eyes normal inspection. ENT: Dry mucous membranes present. Pharynx normal. Neck: Normal inspection. Neck supple. No meningeal signs. CVS: Tachycardia. Heart sounds normal. Pulses normal. Respiratory: No respiratory distress. Breath sounds normal. Chest nontender. Abdomen: Soft. Moderate tenderness in the periumbilical area with guarding present (Also over the lower abdominal wall on the right.). Abnormal bowel sounds: diminished. Back: Normal inspection. Skin: Skin warm. Normal skin color. No rash. Extremities: Extremities exhibit normal ROM. No lower extremity edema. Neuro: Oriented X 3. No motor deficit. No sensory deficit. Reflexes normal. LABS, X-RAYS, AND EKG Laboratory Tests: CBC w Diff: (ANGE: 11/12/2016 16:25) ( MsgRcvd 11/12/2016 16:39) Final results Test Result Flag Units (Reference) WHITE BLOOD COUNT 13.3 H K/uL (4.5-11.5) RED BLOOD COUNT 3.97 L M/uL (4.50-5.90) HEMOGLOBIN 13.0 L gm/dL (13.5-17.5) HEMATOCRIT 38.3 L % (41.0-53.0) MEAN CELL VOLUME 96 fL (80-100) MEAN CORPUSCULAR HGB 33 pg (26-34) MEAN CORPUSCULAR HGB CONC 34 g/dL (31-37) RED CELL DISTRIBUTION WIDTH 13.7 % (11.6-14.8) PLATELET COUNT 349 K/uL (150-400) NEUTROPHIL % 82.6 H % (50-75) LYMPH % 11.4 L % (25-40) MONO % 5.5 % (3-14) EOSINOPHIL % 0.1 % (0-4) BASOPHIL % 0.4 % (0-2) BNP: (ANGE: 11/12/2016 16:25) ( MsgRcvd 11/12/2016 19:08) Final results Test Result Flag Units (Reference) B-TYPE NATRIURETIC PEPTIDE 11.8 pg/ml (5-100) CMP: (ANGE: 11/12/2016 16:25) ( MsgRcvd 11/12/2016 16:58) Final results Test Result Flag Units (Reference) GLUCOSE 148 H mg/dL (70-110) BUN 6 L mg/dL (7-18) CREATININE 0.7 mg/dL (0.6-1.3) Estimated GFR >60 mL/min Estimated GFR- >60 mL/min Note: Persistent reduction over 3 months in eGFR<60 mL/min/1.73 m2 defines CKD. Patients with eGFR values>=60 mL/min/1.73 m2 may also have CKD if evidence ofpersistent proteinuria. Additional information may be foundat www.kidney.org. SODIUM 137 mmol/L (136-145) POTASSIUM 3.1 L mmol/L (3.5-5.1) CHLORIDE 96 L mmol/L (98-107) CARBON DIOXIDE 27 mmol/L (21-32) CALCIUM 9.3 mg/dL (8.5-10.1) TOTAL PROTEIN 8.9 H g/dL (6.4-8.2) ALBUMIN 4.3 g/dL (3.3-5.0) BILIRUBIN, TOTAL 0.7 mg/dL (0.0-1.0) ALKALINE PHOSPHATASE 121 H U/L (46-116) AST (SGOT) 26 U/L (15-37) ALT (SGPT) 33 U/L (12-78) . PROGRESS AND PROCEDURES Course of Care: IV NS Dilaudid 1 mg IV times 3 Ativan 1 mg IV Reglan 10 mg IV benadryl 50 mg IV Haldol 2 mg IV Dexamethasone 10 mg IV KCl 20 mEq IV Patient is stable. Symptoms much better. Patient/family counseled. Old medical records ordered. Disposition: Discharged. Condition: stable and improved. CLINICAL IMPRESSION Moderate dehydration Cyclic vomiting Out of pain medications. Hypokalemia due to vomiting. INSTRUCTIONS Take clear liquids only (frequent sips) for the next 12 hours until better. Advance diet as tolerated. (Stop lasix for 2 days.). Warnings: Further evaluation is necessary. SEDATIVE MEDICATION: You were given sedative medication during your visit. Do not drive or operate dangerous machinery. GENERAL WARNINGS: Return or contact your physician immediately if your condition worsens or changes unexpectedly, if not improving as expected, or if other problems arise. Your Current Medications: STOP TAKING THE FOLLOWING MEDICATIONS: Lasix Oral. CONTINUE TAKING THE FOLLOWING MEDICATIONS: Bentyl Oral. Lisinopril Oral. Percocet Oral. Zofran Oral. Prescription Medications: Oxycodone/APAP 5 mg/325 mg: take 1-2 tablets orally every 6 hours as needed for pain. Dispense fifteen (15). No refill. KCL 20 merari po q day for 3 days. Follow-up: Follow up with your doctor tomorrow. Call for an appointment. Reason for referral: Call for GI referral, out patient standing orders for vomiting and call data operations leader to get appropriate coumadin dose and follow up. Understanding of the discharge instructions verbalized by patient and parent. (Electronically signed by Srinivasa Kolb MD 11/13/2016 13:41)
--- NOTE | 2016-11-12 20:40 | ED ORDER SUMMARY ---
..... Patient: REJI MAYS OrderSheet [facility] VisitID: [id number] [place] [address] 41y, M Registration Date/Time: 11/12/2016 ORDER SHEET Weight: 63.5 kg Allergies: Hydrocodone, Phenergan GENERAL ORDERS: CBC w Diff Urgent (16:28 11/12/2016 EBmina per protocol) (16:28 EBonham) CMP Urgent (16:28 11/12/2016 EBonham per protocol) (16:28 EBonham) Old Records (skagit) (16:53 11/12/2016 Jailene HUMPHREY) (Ack 16:57 TBergley) (17:54 TBergley) BNP Urgent (18:34 11/12/2016 Jailene HUMPHREY) (Ack 18:36 TBergley) (18:48 TBergley) MEDICATION ORDERS: IV FLUIDS: IV NS : initial bolus 1000 mL (1000 mL/hr), then 1000 mL/hr for X1 (NOW); Routine (16:53 11/12/2016 Jailene HUMPHREY) (17:17 EBonjolanta) Dilaudid IV 1 mg (NOW) (16:56 11/12/2016 Jailene HUMPHREY) (17:17 EBonham) Ativan IV 1 mg (NOW) (16:56 11/12/2016 Jailene HUMPHREY) (17:17 EBonjolanta) Zofran IV 4 mg (NOW) (16:56 11/12/2016 Jailene HUMPHREY) (17:17 EBonham) Haldol IV 2 mg (NOW) (18:57 11/12/2016 Jailene HUMPHREY) (Ack 19:00 Polo) (19:32 EBonjolanta) Reglan IV 10 mg (NOW) (18:57 11/12/2016 Jailene HUMPHREY) (Ack 19:00 Polo) (19:31 EBonjolanta) Benadryl IV 50 mg (NOW) (18:57 11/12/2016 Jailene HUMPHREY) (Ack 19:00 Polo) (19:31 EBonham) Dexamethasone IV 10 mg (NOW) (18:57 11/12/2016 Jailene HUMPHREY) (Ack 19:00 Polo) (19:31 [facility] Dilaudid IV 1 mg (NOW) (18:57 11/12/2016 Jailene HUMPHREY) (Ack 19:00 Polo) (19:31 [facility] KCl IV 20 meq/100mL (Run no faster than 10 units/hr, Run no faster than 10 mEq/hr) (19:37 11/12/2016 Jailene HUMPHREY) (19:41 [facility]) Dilaudid IV 1 mg (NOW) (20:33 11/12/2016 Jailene HUMPHREY) (20:37 [facility]) ORDER SHEET NOTES: [Electronically signed by Tiffanie Carpio (22:02 11/12/2016)] [Electronically signed by Srinivasa Kolb MD (13:41 11/13/2016)] [Electronically locked/signed by Tiffanie Carpio (22:02 11/12/2016)]
--- NOTE | 2016-11-13 13:41 | ED MED RECONCILIATION SUMMARY ---
Patient: REJI MAYS Medication Reconciliation Report [facility] VisitID: [id number] [address] [place] [address] 41y, M Registration Date/Time: 11/12/2016 Weight: 63.5 kg Height/Length: 69 in. BMI: 20.7 ALLERGIES: Hydrocodone, Phenergan The patient's Home Medications are listed below: STOP TAKING THE FOLLOWING MEDICATIONS: Lasix Oral CONTINUE TAKING THE FOLLOWING MEDICATIONS: Bentyl Oral Lisinopril Oral Percocet Oral Zofran Oral The source(s) of the original Home Medication information: Not obtained. The following Medications were given to the patient in the Emergency Department: IV NS IV Fluids bolus 1000 mL over 1 hour(s), administered: 11/12/2016 5:16:00 PM Dilaudid [IVP] IVP 1 mg, administered: 11/12/2016 5:17:00 PM Ativan [IVP] IVP 1 mg, administered: 11/12/2016 5:17:00 PM Zofran [IVP] IVP 4 mg, administered: 11/12/2016 5:17:00 PM Dilaudid [IVP] IVP 1 mg, administered: 11/12/2016 7:31:00 PM Dexamethasone [IVP] IVP 2 mg, administered: 11/12/2016 7:31:00 PM Benadryl [IVP] IVP 50 mg, administered: 11/12/2016 7:31:00 PM Reglan [IVP] IVP 10 mg, administered: 11/12/2016 7:31:00 PM HALDOL [IVP] IVP 2 mg, administered: 11/12/2016 7:32:00 PM KCL [IVPB] IVPB bolus 0, then 20 meq 50 mL/hr, administered: 11/12/2016 7:41:00 PM Dilaudid [IVP] IVP 1 mg, administered: 11/12/2016 8:37:00 PM The following Medications were prescribed to the patient: KCL 20 merari po q day for 3 days. -- Srinivasa Kolb MD Oxycodone/APAP 5 mg/325 mg: take 1-2 tablets orally every 6 hours as needed for pain. Dispense fifteen (15). No refill. -- Srinivasa Kolb MD
--- NOTE | 2016-11-13 13:41 | ED MED RECONCILIATION SUMMARY ---
Patient: REJI MAYS Medication Reconciliation Report [facility] VisitID: [id number] [address] [place] [address] 41y, M Registration Date/Time: 11/12/2016 Weight: 63.5 kg Height/Length: 69 in. BMI: 20.7 ALLERGIES: Hydrocodone, Phenergan The patient's Home Medications are listed below: STOP TAKING THE FOLLOWING MEDICATIONS: Lasix Oral CONTINUE TAKING THE FOLLOWING MEDICATIONS: Bentyl Oral Lisinopril Oral Percocet Oral Zofran Oral The source(s) of the original Home Medication information: Not obtained. The following Medications were given to the patient in the Emergency Department: IV NS IV Fluids bolus 1000 mL over 1 hour(s), administered: 11/12/2016 5:16:00 PM Dilaudid [IVP] IVP 1 mg, administered: 11/12/2016 5:17:00 PM Ativan [IVP] IVP 1 mg, administered: 11/12/2016 5:17:00 PM Zofran [IVP] IVP 4 mg, administered: 11/12/2016 5:17:00 PM Dilaudid [IVP] IVP 1 mg, administered: 11/12/2016 7:31:00 PM Dexamethasone [IVP] IVP 2 mg, administered: 11/12/2016 7:31:00 PM Benadryl [IVP] IVP 50 mg, administered: 11/12/2016 7:31:00 PM Reglan [IVP] IVP 10 mg, administered: 11/12/2016 7:31:00 PM HALDOL [IVP] IVP 2 mg, administered: 11/12/2016 7:32:00 PM KCL [IVPB] IVPB bolus 0, then 20 meq 50 mL/hr, administered: 11/12/2016 7:41:00 PM Dilaudid [IVP] IVP 1 mg, administered: 11/12/2016 8:37:00 PM The following Medications were prescribed to the patient: KCL 20 merari po q day for 3 days. -- Srinivasa Kolb MD Oxycodone/APAP 5 mg/325 mg: take 1-2 tablets orally every 6 hours as needed for pain. Dispense fifteen (15). No refill. -- Srinivasa Kolb MD
--- NOTE | 2016-11-13 13:41 | ED MAR SUMMARY ---
..... Medication Administration Record [facility] [address] [place] [address] Patient: REJI MAYS Visit ID: [id number] 41y, M Weight: 63.5 kg Height/Length: 69 in BMI: 20.7 ALLERGIES: Phenergan, Hydrocodone Start 17:16 11/12/2016 Tiffanie Carpio,, Stop 19:41 11/12/2016 Tiffanie Carpio, Medication Administered: IV NS (SALINE), Dose: IV Fluids, Bolus: 1000 mL over 1 hour(s), Dispensed: 1000 mL bag, Site: #1 right AC. Medication Ordered: IV NS : initial bolus 1000 mL (1000 mL/hr), then 1000 mL/hr for X1 (NOW); Routine. Given 11/12/2016 Tiffanie Carpio, Medication Administered: DILAUDID [IVP] (HYDROMORPHONE HCL PF), Dose: 1 mg IVP, Site: #1 right AC. Medication Ordered: Dilaudid IV 1 mg (NOW). Given 11/12/2016 Tiffanie Carpio, Medication Administered: ATIVAN [IVP] (LORAZEPAM), Dose: 1 mg IVP, Site: #1 right AC. Medication Ordered: Ativan IV 1 mg (NOW). Given 11/12/2016 Tiffanie Carpio, Medication Administered: ZOFRAN [IVP] (ONDANSETRON HCL), Dose: 4 mg IVP, Site: #1 right AC. Medication Ordered: Zofran IV 4 mg (NOW). Given 11/12/2016 Tiffanie Carpio, Medication Administered: REGLAN [IVP] (METOCLOPRAMIDE HCL), Dose: 10 mg IVP, Site: #1 right AC. Medication Ordered: Reglan IV 10 mg (NOW). Given 11/12/2016 Tiffanie Carpio, Medication Administered: BENADRYL [IVP] (DIPHENHYDRAMINE HCL), Dose: 50 mg IVP, Site: #1 right AC. Medication Ordered: Benadryl IV 50 mg (NOW). Given 11/12/2016 Tiffanie Carpio, Medication Administered: DEXAMETHASONE [IVP], Dose: 2 mg IVP, Site: #1 right AC. Medication Ordered: Dexamethasone IV 10 mg (NOW). Given 19:31 11/12/2016 Tiffanie Carpio, Medication Administered: DILAUDID [IVP] (HYDROMORPHONE HCL PF), Dose: 1 mg IVP, Site: #1 right AC. Medication Ordered: Dilaudid IV 1 mg (NOW). Given 19:32 11/12/2016 Tiffanie Carpio, Medication Administered: HALDOL [IVP] (HALOPERIDOL LACTATE), Dose: 2 mg IVP, Site: #1 right AC. Medication Ordered: Haldol IV 2 mg (NOW). Start 19:41 11/12/2016 Tiffanie Carpio,, Stop 22:01 11/12/2016 Tiffanie Carpio, Medication Administered: KCL [IVPB] (POTASSIUM CHLORIDE), Dose: 20 meq IVPB over 2 hour(s), Rate: 50 mL/hr, Dispensed: 100 mL bag, Site: #1 right AC. Medication Ordered: KCl IV 20 meq/100mL (Run no faster than 10 units/hr, Run no faster than 10 mEq/hr). Given 20:37 11/12/2016 Tiffanie Carpio, Medication Administered: DILAUDID [IVP] (HYDROMORPHONE HCL PF), Dose: 1 mg IVP, Site: #1 right AC. Medication Ordered: Dilaudid IV 1 mg (NOW).
--- NOTE | 2016-11-13 13:41 | ED MAR SUMMARY ---
..... Medication Administration Record [facility] [address] [place] [address] Patient: REJI MAYS Visit ID: [id number] 41y, M Weight: 63.5 kg Height/Length: 69 in BMI: 20.7 ALLERGIES: Phenergan, Hydrocodone Start 17:16 11/12/2016 Tiffanie Carpio,, Stop 19:41 11/12/2016 Tiffanie Carpio, Medication Administered: IV NS (SALINE), Dose: IV Fluids, Bolus: 1000 mL over 1 hour(s), Dispensed: 1000 mL bag, Site: #1 right AC. Medication Ordered: IV NS : initial bolus 1000 mL (1000 mL/hr), then 1000 mL/hr for X1 (NOW); Routine. Given 11/12/2016 Tiffanie Carpio, Medication Administered: DILAUDID [IVP] (HYDROMORPHONE HCL PF), Dose: 1 mg IVP, Site: #1 right AC. Medication Ordered: Dilaudid IV 1 mg (NOW). Given 11/12/2016 Tiffanie Carpio, Medication Administered: ATIVAN [IVP] (LORAZEPAM), Dose: 1 mg IVP, Site: #1 right AC. Medication Ordered: Ativan IV 1 mg (NOW). Given 11/12/2016 Tiffanie Carpio, Medication Administered: ZOFRAN [IVP] (ONDANSETRON HCL), Dose: 4 mg IVP, Site: #1 right AC. Medication Ordered: Zofran IV 4 mg (NOW). Given 11/12/2016 Tiffanie Carpio, Medication Administered: REGLAN [IVP] (METOCLOPRAMIDE HCL), Dose: 10 mg IVP, Site: #1 right AC. Medication Ordered: Reglan IV 10 mg (NOW). Given 11/12/2016 Tiffanie Carpio, Medication Administered: BENADRYL [IVP] (DIPHENHYDRAMINE HCL), Dose: 50 mg IVP, Site: #1 right AC. Medication Ordered: Benadryl IV 50 mg (NOW). Given 11/12/2016 Tiffanie Carpio, Medication Administered: DEXAMETHASONE [IVP], Dose: 2 mg IVP, Site: #1 right AC. Medication Ordered: Dexamethasone IV 10 mg (NOW). Given 19:31 11/12/2016 Tiffanie Carpio, Medication Administered: DILAUDID [IVP] (HYDROMORPHONE HCL PF), Dose: 1 mg IVP, Site: #1 right AC. Medication Ordered: Dilaudid IV 1 mg (NOW). Given 19:32 11/12/2016 Tiffanie Carpio, Medication Administered: HALDOL [IVP] (HALOPERIDOL LACTATE), Dose: 2 mg IVP, Site: #1 right AC. Medication Ordered: Haldol IV 2 mg (NOW). Start 19:41 11/12/2016 Tiffanie Carpio,, Stop 22:01 11/12/2016 Tiffanie Carpio, Medication Administered: KCL [IVPB] (POTASSIUM CHLORIDE), Dose: 20 meq IVPB over 2 hour(s), Rate: 50 mL/hr, Dispensed: 100 mL bag, Site: #1 right AC. Medication Ordered: KCl IV 20 meq/100mL (Run no faster than 10 units/hr, Run no faster than 10 mEq/hr). Given 20:37 11/12/2016 Tiffanie Carpio, Medication Administered: DILAUDID [IVP] (HYDROMORPHONE HCL PF), Dose: 1 mg IVP, Site: #1 right AC. Medication Ordered: Dilaudid IV 1 mg (NOW).
--- NOTE | 2016-11-13 13:41 | ED DISCHARGE INSTRUCTIONS ---
Patient: REJI MAYS General Instructions [facility] VisitID: [id number] [place] [address] 41y, M Registration Date/Time: 11/12/2016 Moderate dehydration Cyclic vomiting Out of pain medications. Hypokalemia due to vomiting. INSTRUCTIONS Take clear liquids only (frequent sips) for the next 12 hours until better. Advance diet as tolerated. (Stop lasix for 2 days.). Warnings: Further evaluation is necessary. SEDATIVE MEDICATION: You were given sedative medication during your visit. Do not drive or operate dangerous machinery. GENERAL WARNINGS: Return or contact your physician immediately if your condition worsens or changes unexpectedly, if not improving as expected, or if other problems arise. Your Current Medications: STOP TAKING THE FOLLOWING MEDICATIONS: Lasix Oral. CONTINUE TAKING THE FOLLOWING MEDICATIONS: Bentyl Oral. Lisinopril Oral. Percocet Oral. Zofran Oral. Prescription Medications: Oxycodone/APAP 5 mg/325 mg: take 1-2 tablets orally every 6 hours as needed for pain. Dispense fifteen (15). No refill. KCL 20 merari po q day for 3 days. Follow-up: Follow up with your doctor tomorrow. Call for an appointment. Reason for referral: Call for GI referral, out patient standing orders for vomiting and call risk and insurance consultant to get appropriate coumadin dose and follow up. Understanding of the discharge instructions verbalized by patient and parent. ADDITIONAL INFORMATION Dehydration (Adult) Dehydration occurs when your body loses too much fluid. This may be the result of vomiting a lot or from diarrhea,sweating a lot, or a high fever. It may also happen if you dont drink enough fluid when youre sick. Misuse of diuretics (water pills) can also be a cause. Symptoms include thirst and feeling dizzy, weak, fatigued, or very drowsy. The diet described below is usually enough to treat most cases. Sometimes you may needmedicine. Home Care Follow these guidelines for home care: Drink at least 12 8-ounce glasses of fluid every day to overcome the dehydration. Fluid may include water; orange juice; lemonade; apple, grape, and cranberry juice; clear fruit drinks; electrolyte replacement and sports drinks; and teas and coffee without caffeine. If you have been diagnosed with a kidney disease, ask your doctor how much and what types of fluids you should drink to prevent dehydration. If you have kidney disease, drinking too much fluid can cause it build up in the your body and be dangerous to your health. If you have fever, muscle aching, or headache from a viral syndrome, you may useacetaminophen or ibuprofen, unless another medicine was prescribed for this.If you have chronic liver or kidney disease or ever had a stomach ulcer or GI bleeding, talk with your doctor before using these medicines. Don't take aspirin if you are younger than 18 and are ill with a fever.Aspirin raises the chance forsevere liver injury. Follow-up care Follow up with your health care provider if you don't get better in the next 24 to 48 hours. When to seek medical care Get prompt medical attention if any of theseoccur: Continued vomiting (cant keep liquids down) Frequent diarrhea (more than 5 times a day); blood (red or black color) or mucus in diarrhea Blood in vomit or stool Swollen abdomen or increasing abdominal pain Weakness, dizziness, or fainting Unusually drowsy or confused Reduced urine output or extreme thirst Fever of 100.4 F (38 C) oral or higher that does not get better with fever medication Clear Liquid Diet Clear liquids are any liquid that you can see through as well as those that are very easy to digest. This is used while the body is recovering from irritation or infection of the stomach or intestinal tract. It may also be used before special procedures or surgery. This diet is to be used no more than three days. You may include the following items. Adults Adults should drink a total of 23 quarts of liquid per day. It may be easier to drink small frequent servings rather than a few large ones. Liquids can include: Fruit juices.Strained orange juice or lemonade (no pulp), apple, grape and cranberry juice, clear fruit drinks, sports drinks Beverages.Sport drinks, sodas, mineral water (plain or flavored), tea, black coffee, liquid gelatin (add twice the recommended amount of water) Soups.Clear broth, consomm, bouillon Desserts.Plain gelatin, popsicles, fruit juice bars Children Over 2 years old The following liquids are acceptable for children over age 2: Fruit juices.Strained orange juice or lemonade (no pulp), apple, grape and cranberry juice, clear fruit drinks Beverages. Sports drinks, sodas, mineral water (plain or flavored), tea, liquid gelatin (add twice the recommended amount of water) Soups. Clear broth, consomm, bouillon Desserts. Plain gelatin, popsicles, fruit juice bars Children under 2 years old Oral rehydration fluids such are available at drug stores and most grocery stores without a prescription. Oxycodone Hydrochloride, Acetaminophen Oral tablet What is this medicine? ACETAMINOPHEN; OXYCODONE (a set a WEI lupe fen; ox i KOE done) is a pain reliever. It is used to treat mild to moderate pain. How should I use this medicine? Take this medicine by mouth with a full glass of water. Follow the directions on the prescription label. Take your medicine at regular intervals. Do not take your medicine more often than directed. Talk to your corrugated fastener driver regarding the use of this medicine in children. Special care may be needed. Patients over 65 years old may have a stronger reaction and need a smaller dose. What side effects may I notice from receiving this medicine? Side effects that you should report to your doctor or health field care coordinator as soon as possible: allergic reactions like skin rash, itching or hives, swelling of the face, lips, or tongue breathing difficulties, wheezing confusion light headedness or fainting spells severe stomach pain yellowing of the skin or the whites of the eyes Side effects that usually do not require medical attention (report to your doctor or health field care coordinator if they continue or are bothersome): dizziness drowsiness nausea vomiting What may interact with this medicine? alcohol antihistamines barbiturates like amobarbital, butalbital, butabarbital, methohexital, pentobarbital, phenobarbital, thiopental, and secobarbital benztropine drugs for bladder problems like solifenacin, trospium, oxybutynin, tolterodine, hyoscyamine, and methscopolamine drugs for breathing problems like ipratropium and tiotropium drugs for certain stomach or intestine problems like propantheline, homatropine methylbromide, glycopyrrolate, atropine, belladonna, and dicyclomine general anesthetics like etomidate, ketamine, nitrous oxide, propofol, desflurane, enflurane, halothane, isoflurane, and sevoflurane medicines for depression, anxiety, or psychotic disturbances medicines for sleep muscle relaxants naltrexone narcotic medicines (opiates) for pain phenothiazines like perphenazine, thioridazine, chlorpromazine, mesoridazine, fluphenazine, prochlorperazine, promazine, and trifluoperazine scopolamine tramadol trihexyphenidyl What if I miss a dose? If you miss a dose, take it as soon as you can. If it is almost time for your next dose, take only that dose. Do not take double or extra doses. Where should I keep my medicine? Keep out of the reach of children. This medicine can be abused. Keep your medicine in a safe place to protect it from theft. Do not share this medicine with anyone. Selling or giving away this medicine is dangerous and against the law. Store at room temperature between 20 and 25 degrees C (68 and 77 degrees F). Keep container tightly closed. Protect from light. This medicine may cause accidental overdose and if it is taken by other adults, children, or pets. Flush any unused medicine down the toilet to reduce the chance of harm. Do not use the medicine after the expiration date. What should I tell my health care provider before I take this medicine? They need to know if you have any of these conditions: brain tumor Crohn's disease, inflammatory bowel disease, or ulcerative colitis drink more than 3 alcohol containing drinks per day drug abuse or addiction head injury heart or circulation problems kidney disease or problems going to the bathroom liver disease lung disease, asthma, or breathing problems an unusual or allergic reaction to acetaminophen, oxycodone, other opioid analgesics, other medicines, foods, dyes, or preservatives or trying to get breast-feeding What should I watch for while using this medicine? Tell your doctor or health field care coordinator if your pain does not go away, if it gets worse, or if you have new or a different type of pain. You may develop tolerance to the medicine. Tolerance means that you will need a higher dose of the medication for pain relief. Tolerance is normal and is expected if you take this medicine for a long time. Do not suddenly stop taking your medicine because you may develop a severe reaction. Your body becomes used to the medicine. This does NOT mean you are addicted. Addiction is a behavior related to getting and using a drug for a non-medical reason. If you have pain, you have a medical reason to take pain medicine. Your doctor will tell you how much medicine to take. If your doctor wants you to stop the medicine, the dose will be slowly lowered over time to avoid any side effects. You may get drowsy or dizzy. Do not drive, use machinery, or do anything that needs mental alertness until you know how this medicine affects you. Do not stand or sit up quickly, especially if you are an older patient. This reduces the risk of dizzy or fainting spells. Alcohol may interfere with the effect of this medicine. Avoid alcoholic drinks. There are different types of narcotic medicines (opiates) for pain. If you take more than one type at the same time, you may have more side effects. Give your health care provider a list of all medicines you use. Your doctor will tell you how much medicine to take. Do not take more medicine than directed. Call emergency for help if you have problems breathing. The medicine will cause constipation. Try to have a bowel movement at least every 2 to 3 days. If you do not have a bowel movement for 3 days, call your doctor or health field care coordinator. Do not take Tylenol (acetaminophen) or medicines that have acetaminophen with this medicine. Too much acetaminophen can be very dangerous. Many nonprescription medicines contain acetaminophen. Always read the labels carefully to avoid taking more acetaminophen. You have been given the following additional information: Dehydration (Adult) Diet, Clear Liquid Oxycodone Hydrochloride, Acetaminophen Oral tablet (Electronically signed by Srinivasa Kolb MD 11/13/2016 13:41)
== END 2016-11-12 22:00 | disposition home or self-care (01) ==
LOC: ED SRH 15:59
DX: E86.0 Dehydration (principal); E87.6 Hypokalemia; G43.A0 Cyclical vomiting, in migraine, not intractable; I50.9 Heart failure, unspecified; I10 Essential (primary) hypertension; Z88.5 Allergy status to narcotic agent; Z88.8 Allergy status to other drugs, medicaments and biological substances; F17.200 Nicotine dependence, unspecified, uncomplicated; Z76.0 Encounter for issue of repeat prescription
CPT/HCPCS: 90100; 91320; 95059

== ENCOUNTER 2016-11-15 19:39 | Emergency (ER) | payer OTHER ==
--- NOTE | 2016-11-15 21:21 | ED NURSING NOTES ---
Clinical Report - Nurses [facility] [place] [address] 11/15/2016 19:39 Patient: REJI MAYS TRIAGE Triage time 19:46. Chief Complaint: ABDOMINAL PAIN, NAUSEA, VOMITING and DIARRHEA. --19:51 Sheriff Long R.N. 19:46 11/15/16. BP: 135/113. HR: 128. RR: 20. O2 saturation: 99%. Temp: 97.7 F. Pain level now: 03/15. --19:51 Sheriff Long R.N. Weight: 63.5 kg stated. Height/Length: 69 inches Per Patient. BMI: 20.7. --19:50 Sheriff Long R.N. Medications Bentyl Oral. Lasix Oral. Lisinopril Oral. Percocet Oral. Zofran Oral. --19:48 Sheriff Long R.N. Allergies Hydrocodone. Phenergan. --19:48 Sheriff Long R.N. History Arrived by private vehicle. Historian: patient. Accompanied by family. This started today. Onset. (4 hours ago). PAST MEDICAL HX: Immunizations not up to date. SURGERY HX: Cholecystectomy. Hernia repair. Inguinal hernia repair. SOCIAL HX: Smoker- current status unknown (5 cigarettes daily). Alcohol use; consumes three beers. No drug use. FALL RISK ASSESSMENT: Fall risk assessment completed. No fall risk identified. NUTRITIONAL RISK ASSESSMENT: The nutritional risk assessment revealed no deficiencies. FUNCTIONAL ASSESSMENT: Functional assessment: no impairments noted. LEARNING NEEDS ASSESSMENT: The learning needs assessment revealed no barriers. SKIN INTEGRITY ASSESSMENT: Skin integrity risk assessment completed. No skin integrity risk identified. --19:51 Sheriff Long R.N. PROBLEMS: Dehydration. Congestive Heart Failure. Cyclical vomiting syndrome. Hypertension. --19:48 Sheriff Long R.N. PHYSICAL ASSESSMENT Ambulatory to room. GENERAL / NEURO / PSYCH: Alert. Oriented X 4. Appears in pain and anxious. HEENT: Mucous membranes are pink. RESPIRATORY: Respirations not labored. Breath sounds within normal limits. CVS: Capillary refill less than 2 seconds. GI / : Abdomen soft and nontender. SKIN: Skin is warm and dry. --19:52 Sheriff Long R.N. NURSING PROGRESS NOTES Patient gowned. Head of bed elevated. Two patient identifiers checked. Call light placed in reach. Side rails up x 2. Bed placed in lowest position. Brakes of bed on. Patient ready for evaluation- chart flagged. --19:52 Sheriff Long R.N. 19:56 11/15/2016 Site #1 started via IV in the right forearm with an 20g angiocath, with aseptic technique and good blood return; two attempts. Blood drawn: rainbow set. Labeled in the presence of the patient and sent to the lab. Saline lock flushed with 10 mL saline. --19:56 Daren Walton R.N. 19:57 11/15/2016 Started bag #1 1000 mL IV Fluids IV NS (Saline); at 1000 mL/hr via site #1 via IV pump. Allergies verified and confirmed 5 rights. IV patency established site checked: no pain, redness, or swelling flushed thoroughly pre- and post-medication administration. --20:07 Sheriff Long R.N. 20:08 11/15/2016 HALDOL (Haloperidol Lactate) IVP 2 mg given. via site #1. Allergies verified, confirmed 5 rights and sedative warning given to the patient. IV patency established site checked: no pain, redness, or swelling flushed thoroughly pre- and post-medication administration. IVP given by RN. --20:08 Sheriff Long R.N. 20:08 11/15/2016 Reglan (Metoclopramide HCl) IVP 10 mg given. via site #1. Allergies verified and confirmed 5 rights. IV patency established site checked: no pain, redness, or swelling flushed thoroughly pre- and post-medication administration. IVP given by RN. --20:08 Sheriff Long R.N. 20:09 11/15/2016 Toradol IVP 30 mg given. via site #1. Allergies verified and confirmed 5 rights. IV patency established site checked: no pain, redness, or swelling flushed thoroughly pre- and post-medication administration. IVP given by RN. --20:09 Sheriff Long R.N. 20:09 11/15/2016 Benadryl (DiphenhydrAMINE HCl) IVP 25 mg given. via site #1. Allergies verified, confirmed 5 rights and sedative warning given to the patient. IV patency established site checked: no pain, redness, or swelling flushed thoroughly pre- and post-medication administration. IVP given by RN. --20:09 Sheriff Long R.N. 20:27 11/15/2016 Ativan (LORazepam) IVP 2 mg given. via site #1. Allergies verified, confirmed 5 rights and sedative warning given to the patient. IV patency established site checked: no pain, redness, or swelling flushed thoroughly pre- and post-medication administration. IVP given by RN. --20: Sheriff Long R.N. 20:38 11/15/2016 Zofran (Ondansetron HCl) IVP 8 mg given. via site #1. Allergies verified and confirmed 5 rights. IV patency established site checked: no pain, redness, or swelling flushed thoroughly pre- and post-medication administration. IVP given by RN. --20:38 Sheriff Long R.N. 20:55 11/15/16. BP: 150/112 (regular adult cuff) taken on the left arm, while sitting. HR: 123. O2 saturation: 100% on room air. Temp: 98.7 F (oral). --20:56 Suzi Clancy 21:14 11/15/2016 Dilaudid (HYDROmorphone HCl PF) IVP 1 mg given. via site #1. Allergies verified, confirmed 5 rights and sedative warning given to the patient. IV patency established site checked: no pain, redness, or swelling flushed thoroughly pre- and post-medication administration. IVP given by RN. --21:14 Sheriff Long R.N. 21:31 11/15/2016 Dilaudid (HYDROmorphone HCl PF) IVP 1 mg given. via site #1. Allergies verified, confirmed 5 rights and sedative warning given to the patient. IV patency established site checked: no pain, redness, or swelling flushed thoroughly pre- and post-medication administration. IVP given by RN. --21:31 Sheriff Long R.N. 21:31 11/15/2016 IV Fluids IV NS Discontinued: bag #1 infused upon arrival. Total amount infused: 1000 mL. IV patency established IV site checked: no pain, redness, or swelling IV flushed thoroughly. --21:31 Sheriff Long R.N. 21:32 11/15/2016 Site #1 removed upon discharge. Catheter intact. Bandaid applied. --21:32 Sheriff Long R.N. 21:32 11/15/16. BP: 160/97. HR: 90. RR: 18. O2 saturation: 98%. Temp: 98.8 F. Pain level now: 10/13. --21:44 Sheriff Long R.N. DISPOSITION / DISCHARGE Condition at departure: stable. No learning barriers present. Discharge instructions provided and reviewed. Reviewed medication(s) side effects, precautions, dosing and course information. Prescription(s) given to the parent. Patient verbalized understanding. Written instructions provided in Icelandic. The patient was discharged home and accompanied by Mother. He left the Emergency Department ambulatory and via private vehicle. Driving (Mother). --21:43 Sheriff Long R.N. 21:41 11/15/16. BP: 160/97. HR: 90. RR: 18. O2 saturation: 98%. Temp: 98.8 F. Pain level now: 10/13. --21:43 Sheriff Long R.N. Locked/Released at 11/15/2016 21:44 by Sheriff Long R.N.
--- NOTE | 2016-11-15 21:21 | ED ORDER SUMMARY ---
..... Patient: REJI MAYS OrderSheet [facility] VisitID: [id number] [place] [address] 41y, M Registration Date/Time: 11/15/2016 ORDER SHEET Weight: 63.5 kg (stated) Allergies: Hydrocodone, Phenergan GENERAL ORDERS: CBC w Diff Urgent (19:55 11/15/2016 EKoroleva P.A.-C) (Ack 19:58 [facility] [employer] [facility]) CMP Urgent (19:55 11/15/2016 EKoroleva P.A.-C) (Ack 19:58 [facility] [employer] [facility]) UA-Culture if indicated Urgent (19:55 11/15/2016 EKoroleva P.A.-C) (Ack 19:58 [facility] [employer] [facility]) PCT (Procalcitonin) Urgent (19:58 11/15/2016 EKoroleva P.A.-C) (Ack 19:58 [facility] [employer] [facility]) Vitals (20:47 11/15/2016 EKoroleva P.A.-C) [facility] MEDICATION ORDERS: IV FLUIDS: IV NS : initial bolus 1000 mL (1000 mL/hr), then 1000 mL/hr for X1 (NOW); Owen (19:55 11/15/2016 EKoroleva P.A.-C) (20:07 SSambou R.N.) Haldol IV 2 mg (HIGH ALERT MEDICATION, NOW) (19:57 11/15/2016 EKoroleva P.A.-C) (20:08 SSambou R.N.) Reglan IV 10 mg (NOW) (19:58 11/15/2016 EKoroleva P.A.-C) (20:08 SSambou R.N.) Toradol IV 30 mg (NOW) (19:58 11/15/2016 EKoroleva P.A.-C) (20:09 SSambou R.N.) Benadryl IV 25 mg (NOW) (19:58 11/15/2016 EKoroleva P.A.-C) (20:09 SSambou R.N.) Ativan IV 2 mg (HIGH ALERT MEDICATION, NOW) (20:13 11/15/2016 EKoroleva P.A.-C) (20:27 SSambou R.N.) Zofran IV 8 mg (NOW) (20:32 11/15/2016 EKoroleva P.A.-C) (20:38 SSambou R.N.) Dilaudid IV 1 mg (HIGH ALERT MEDICATION, NOW) (21:05 11/15/2016 EKoroleva P.A.-C) (21:14 SSambou R.N.) Dilaudid IV 1 mg (HIGH ALERT MEDICATION, NOW) (21:13 11/15/2016 EKoroleva P.A.-C) (21:31 SSambou R.N.) ORDER SHEET NOTES: [Electronically signed by Sheriff Ada Long (21:43 11/15/2016)] [Electronically signed by Sheriff Ada Long (21:44 11/15/2016)] [Electronically signed by Francie Conteh P.A.-C (22:46 11/15/2016)] [Electronically locked/signed by Sheriff Ada Long (21:43 11/15/2016)]
--- NOTE | 2016-11-15 21:21 | ED CLINICAL REPORT ---
Clinical Report - Physicians/Mid Levels [facility] [address] [place] [address] 11/15/2016 19:39 Patient: REJI MAYS Time Seen: 20:00 Nov 15 2016. Arrived- By private vehicle. Historian- patient. HISTORY OF PRESENT ILLNESS Chief Complaint: ABDOMINAL PAIN. It is described as "pain" and it is described as located in the epigastric area and in the periumbilical area. This started today and is still present. The patient has had nausea, loss of appetite, vomiting and diarrhea. (abdominal pain since today. Difficulty tolerating by mouth. Reports similar history of the same. Denies antibiotics. Denies melena. Denies any shortness of breath or chest pain. Denies lower extremity swelling. Denies any recent illness with fevers cough and rhinorrhea or congestion. Denies syncope.). Similar symptoms previously: Recent medical care: The patient was seen recently by a health care provider. REVIEW OF SYSTEMS No black stools, difficulty with urination, fever, difficulty breathing or cough. No chills. All systems otherwise negative, except as recorded above. PAST HISTORY Problems: Dehydration. Congestive Heart Failure. Cyclical vomiting syndrome. Hypertension. Additional Surgeries: Cholecystectomy. Hand surgery . Hernia inguinal . Hernia Repair. Inguinal Hernia Repair. Tympanostomy Tubes. Medications: Bentyl Oral. Lasix Oral. Lisinopril Oral. Percocet Oral. Zofran Oral. Allergies: Hydrocodone. Phenergan. SOCIAL HISTORY Current every day smoker. Alcohol use. History of drug use former. ADDITIONAL NOTES The nursing notes have been reviewed. PHYSICAL EXAM Vital Signs: 11/15/2016 20:55 BP: 150/112. HR: 123. O2 saturation: 100%. Temp: 98.7 F. 11/15/2016 19:46 BP: 135/113. HR: 128. RR: 20. O2 saturation: 99%. Temp: 97.7 F. Pain level now: 9/10. Appearance: Alert. Eyes: Eyes normal inspection. ENT: Ears normal. Neck: Normal inspection. No lymphadenopathy. CVS: Normal heart rate and rhythm. Heart sounds normal. Respiratory: No respiratory distress. No accessory muscle use or decreased air movement. Abdomen: Mild tenderness diffusely and in the epigastric area. No mass. No guarding. Skin: Skin warm. Neuro: Oriented X 3. LABS, X-RAYS, AND EKG Laboratory Tests: UA-Culture if indicated: (ANGE: 11/15/2016 21:10) ( [facility] 11/15/2016 21:45) Final results Test Result Flag Units (Reference) URINE COLOR BLAIR URINE APPEARANCE CLEAR URINE GLUCOSE NEGATIVE (NEGATIVE) URINE BILIRUBIN 2+ (NEGATIVE) URINE BILIRUBIN ICTOTEST POSITIVE (NEGATIVE) URINE KETONE TRACE (NEGATIVE) URINE SPECIFIC GRAVITY 1.020 (1.010-1.030) URINE PH 6.0 (5.0-8.0) URINE PROTEIN TRACE (NEGATIVE) URINE UROBILINOGEN 0.2 EU/dL (0.2-1.0) URINE NITRITE NEGATIVE (NEGATIVE) URINE BLOOD NEGATIVE (NEGATIVE) URINE LEUK ESTERASE NEGATIVE (NEGATIVE) URINE RBC NONE SEEN rbc/hpf (0-1) URINE WBC 3-5 wbc/hpf (0-1) URINE EPITHELIAL CELLS NONE SEEN EPI/hpf (0-5) URINE BACTERIA NONE SEEN (NONE SEEN) URINE COMMENT CULT NOT INDICATED 2+ MUCUSURINE CULTURES ARE SET-UP BASED ON THE FOLLOWING CRITERIA:POSITIVE NITRITEPOSITIVE LEUKOCYTE ESTERASEGREATER THAN 10 WHITE BLOOD CELLSMODERATE (2+) OR GREATER BACTERIA CBC w Diff: (ANGE: 11/15/2016 19:55) ( [facility] 11/15/2016 20:19) Final results Test Result Flag Units (Reference) WHITE BLOOD COUNT 8.5 K/uL (4.5-11.5) RED BLOOD COUNT 4.22 L M/uL (4.50-5.90) HEMOGLOBIN 13.9 gm/dL (13.5-17.5) HEMATOCRIT 40.7 L % (41.0-53.0) MEAN CELL VOLUME 96 fL (80-100) MEAN CORPUSCULAR HGB 33 pg (26-34) MEAN CORPUSCULAR HGB CONC 34 g/dL (31-37) RED CELL DISTRIBUTION WIDTH 13.8 % (11.6-14.8) PLATELET COUNT 352 K/uL (150-400) NEUTROPHIL % 63.7 % (50-75) LYMPH % 29.9 % (25-40) MONO % 5.6 % (3-14) EOSINOPHIL % 0.4 % (0-4) BASOPHIL % 0.4 % (0-2) [id number]: (ANGE: 11/15/2016 19:55) ( MsgRcvd 11/15/2016 20:44) Final results Test Result Flag Units (Reference) PROCALCITONIN <0.5 ng/mL (0-0.5) PCT Concentration: Interpretation : Risk/option for action PCT <=0.5 ng/mL : Systemic : Low risk forinfection(sepsis): progression to severeis not likely. : systemic infection.Local bacterial : CAUTION-PCT levelsinfection is : below 0.5 ng/mL do notpossible. : exclude an infection,because localizedinfections (withoutsystemic signs) may beassociated with suchlow levels. If PCT ismeasured very earlyafter a bacterialchallenge (usually <6hours), these valuesmay still be low. Inthis case PCT shouldbe re-assessed 6-24hours later. PCT >0.5 and : Systemic infection: Moderate risk for<= 2 ng/mL : (sepsis) is : progression to severepossible, but : systemic infection.other conditions : The patient should beare known to : closely monitoredelevate PCT. : both clinically andby re-assessing PCTwithin 6-24 hours. PCT > 2 ng/mL : Systemic infection: High risk for(sepsis) is likely: progression to severeunless other : systemic infection.causes are known. : PCT >= 10 ng/mL : Important systemic: High likelihood ofinflammatory : severe sepsis orresponse, almost : septic shock.exclusively due to:severe bacterial :sepsis or septic :shock. : CMP: (ANGE: 11/15/2016 19:55) ( MsgRcvd 11/15/2016 20:20) Final results Test Result Flag Units (Reference) GLUCOSE 123 H mg/dL (70-110) BUN 9 mg/dL (7-18) CREATININE 0.6 mg/dL (0.6-1.3) Estimated GFR >60 mL/min Estimated GFR- >60 mL/min Note: Persistent reduction over 3 months in eGFR<60 mL/min/1.73 m2 defines CKD. Patients with eGFR values>=60 mL/min/1.73 m2 may also have CKD if evidence ofpersistent proteinuria. Additional information may be foundat www.kidney.org. SODIUM 143 mmol/L (136-145) POTASSIUM 3.3 L mmol/L (3.5-5.1) CHLORIDE 104 mmol/L (98-107) CARBON DIOXIDE 25 mmol/L (21-32) CALCIUM 9.1 mg/dL (8.5-10.1) TOTAL PROTEIN 8.4 H g/dL (6.4-8.2) ALBUMIN 4.2 g/dL (3.3-5.0) BILIRUBIN, TOTAL 0.4 mg/dL (0.0-1.0) ALKALINE PHOSPHATASE 100 U/L (46-116) AST (SGOT) 51 H U/L (15-37) ALT (SGPT) 56 U/L (12-78) . PROGRESS AND PROCEDURES Course of Care: During the time in the ED, the following DDX were considered: acute surgical abdomen, hemodynamic or metabolic instability, dehydration, gastroenteritis-viral, food borne, or bacterial, food intolerance, irritable or inflammatory bowel, infection, sepsis. 11/15/2016 21:41 BP: 160/97. HR: 90. RR: 18. O2 saturation: 98%. Temp: 98.8 F. Pain level now: 4/10. Patient is stable. Patient/family counseled. Differential Diagnosis: I considered gastritis, gastroenteritis, acute appendicitis, mesenteric lymphadenitis, diverticulitis, splenic injury, splenic rupture, intraabdominal abscess, urinary tract infection, ovarian cyst, pelvic abscess, abdominal aortic aneurysm, myocardial infarction, pneumonia, diabetic ketoacidosis and medications as a possible cause of abdominal pain in this patient. This is a partial list of diagnoses considered. Disposition: Discharged. Condition: good. CLINICAL IMPRESSION Chronic generalized abdominal pain of unknown cause. INSTRUCTIONS Drink plenty of fluids. Prescription Medications: Reglan 10 mg tablets: take 1 orally every 8 hours for 3 days as needed for nausea or vomiting. Dispense ten (10). Zofran ODT 4 mg: take 1 orally every 6 hours for 3 days as needed for nausea. Dispense ten (10). One refill. 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 (Electronically signed by Francie Conteh P.A.-C 11/15/2016 22:46)
--- NOTE | 2016-11-15 21:21 | ED ORDER SUMMARY ---
..... Patient: REJI MAYS OrderSheet [facility] VisitID: [id number] [place] [address] 41y, M Registration Date/Time: 11/15/2016 ORDER SHEET Weight: 63.5 kg (stated) Allergies: Hydrocodone, Phenergan GENERAL ORDERS: CBC w Diff Urgent (19:55 11/15/2016 EKoroleva P.A.-C) (Ack 19:58 CHagerty ER Gear Lapper) CMP Urgent (19:55 11/15/2016 EKoroleva P.A.-C) (Ack 19:58 CHagerty ER Gear Lapper) UA-Culture if indicated Urgent (19:55 11/15/2016 EKoroleva P.A.-C) (Ack 19:58 CHagerty ER Gear Lapper) PCT (Procalcitonin) Urgent (19:58 11/15/2016 EKoroleva P.A.-C) (Ack 19:58 CH[facility]ty [facility] Gear Lapper) Vitals (20:47 11/15/2016 EKoroleva P.A.-C) [facility] MEDICATION ORDERS: IV FLUIDS: IV NS : initial bolus 1000 mL (1000 mL/hr), then 1000 mL/hr for X1 (NOW); Owen (19:55 11/15/2016 EKoroleva P.A.-C) (20:07 SSambou R.N.) Haldol IV 2 mg (HIGH ALERT MEDICATION, NOW) (19:57 11/15/2016 EKoroleva P.A.-C) (20:08 SSambou R.N.) Reglan IV 10 mg (NOW) (19:58 11/15/2016 EKoroleva P.A.-C) (20:08 SSambou R.N.) Toradol IV 30 mg (NOW) (19:58 11/15/2016 EKoroleva P.A.-C) (20:09 SSambou R.N.) Benadryl IV 25 mg (NOW) (19:58 11/15/2016 EKoroleva P.A.-C) (20:09 SSambou R.N.) Ativan IV 2 mg (HIGH ALERT MEDICATION, NOW) (20:13 11/15/2016 EKoroleva P.A.-C) (20:27 SSambou R.N.) Zofran IV 8 mg (NOW) (20:32 11/15/2016 EKoroleva P.A.-C) (20:38 SSambou R.N.) Dilaudid IV 1 mg (HIGH ALERT MEDICATION, NOW) (21:05 11/15/2016 EKoroleva P.A.-C) (21:14 SSambou R.N.) Dilaudid IV 1 mg (HIGH ALERT MEDICATION, NOW) (21:13 11/15/2016 EKoroleva P.A.-C) (21:31 SSambou R.N.) ORDER SHEET NOTES: [Electronically signed by Sheriff Ada Long (21:43 11/15/2016)] [Electronically signed by Sheriff Ada Long (21:44 11/15/2016)] [Electronically signed by Francie Conteh P.A.-C (22:46 11/15/2016)] [Electronically locked/signed by Sheriff Ada Long (21:43 11/15/2016)]
--- NOTE | 2016-11-15 22:46 | ED MAR SUMMARY ---
..... Medication Administration Record [facility] [address] [place] [address] Patient: REJI MAYS Visit ID: [id number] 41y, M Weight: 63.5 kg Height/Length: 69 in BMI: 20.7 ALLERGIES: Hydrocodone, Phenergan Start 19:57 11/15/2016 Sheriff Long R.N., Stop 21:31 11/15/2016 Sheriff Long R.N. Medication Administered: IV NS (SALINE), Dose: IV Fluids, Rate: 1000 mL/hr, Dispensed: 1000 mL bag, Site: #1 right forearm. Medication Ordered: IV NS : initial bolus 1000 mL (1000 mL/hr), then 1000 mL/hr for X1 (NOW); Owen. Given 20:11/15/2016 Sheriff Long R.N. Medication Administered: HALDOL [IVP] (HALOPERIDOL LACTATE), Dose: 2 mg IVP, Site: #1 right forearm. Medication Ordered: Haldol IV 2 mg (HIGH ALERT MEDICATION, NOW). Given 20:11/15/2016 Sheriff Long R.N. Medication Administered: REGLAN [IVP] (METOCLOPRAMIDE HCL), Dose: 10 mg IVP, Site: #1 right forearm. Medication Ordered: Reglan IV 10 mg (NOW). Given 20:11/15/2016 Sheriff Long R.N. Medication Administered: TORADOL [IVP], Dose: 30 mg IVP, Site: #1 right forearm. Medication Ordered: Toradol IV 30 mg (NOW). Given 20:11/15/2016 Sheriff Long R.N. Medication Administered: BENADRYL [IVP] (DIPHENHYDRAMINE HCL), Dose: 25 mg IVP, Site: #1 right forearm. Medication Ordered: Benadryl IV 25 mg (NOW). Given 20:11/15/2016 Sheriff Long R.N. Medication Administered: ATIVAN [IVP] (LORAZEPAM), Dose: 2 mg IVP, Site: #1 right forearm. Medication Ordered: Ativan IV 2 mg (HIGH ALERT MEDICATION, NOW). Given 20:38 11/15/2016 Sheriff Long R.NJesusita Medication Administered: ZOFRAN [IVP] (ONDANSETRON HCL), Dose: 8 mg IVP, Site: #1 right forearm. Medication Ordered: Zofran IV 8 mg (NOW). Given 21:14 11/15/2016 Sheriff Long R.N. Medication Administered: DILAUDID [IVP] (HYDROMORPHONE HCL PF), Dose: 1 mg IVP, Site: #1 right forearm. Medication Ordered: Dilaudid IV 1 mg (HIGH ALERT MEDICATION, NOW). Given 21:31 11/15/2016 Sheriff Long R.N. Medication Administered: DILAUDID [IVP] (HYDROMORPHONE HCL PF), Dose: 1 mg IVP, Site: #1 right forearm. Medication Ordered: Dilaudid IV 1 mg (HIGH ALERT MEDICATION, NOW).
--- NOTE | 2016-11-15 22:46 | ED MED RECONCILIATION SUMMARY ---
Patient: REJI MAYS Medication Reconciliation Report [facility] VisitID: [id number] [address] [place] [address] 41y, M Registration Date/Time: 11/15/2016 Weight: 63.5 kg Height/Length: 69 in. BMI: 20.7 ALLERGIES: Hydrocodone, Phenergan The patient's Home Medications are listed below: THE FOLLOWING MEDICATIONS NEED TO BE RECONCILED: Bentyl Oral Lasix Oral Lisinopril Oral Percocet Oral Zofran Oral The source(s) of the original Home Medication information: Not obtained. The following Medications were given to the patient in the Emergency Department: IV NS IV Fluids bolus 0, then 1000 mL/hr, administered: 11/15/2016 7:57:00 PM HALDOL [IVP] IVP 2 mg, administered: 11/15/2016 8:08:00 PM Reglan [IVP] IVP 10 mg, administered: 11/15/2016 8:08:00 PM Toradol [IVP] IVP 30 mg, administered: 11/15/2016 8:09:00 PM Benadryl [IVP] IVP 25 mg, administered: 11/15/2016 8:09:00 PM Ativan [IVP] IVP 2 mg, administered: 11/15/2016 8:27:00 PM Zofran [IVP] IVP 8 mg, administered: 11/15/2016 8:38:00 PM Dilaudid [IVP] IVP 1 mg, administered: 11/15/2016 9:14:00 PM Dilaudid [IVP] IVP 1 mg, administered: 11/15/2016 9:31:00 PM The following Medications were prescribed to the patient: Reglan 10 mg tablets: take 1 orally every 8 hours for 3 days as needed for nausea or vomiting. Dispense ten (10). -- Francie Conteh P.AMaddie Zofran ODT 4 mg: take 1 orally every 6 hours for 3 days as needed for nausea. Dispense ten (10). One refill. -- Francie Conteh P.Abelino
--- NOTE | 2016-11-15 22:46 | ED MAR SUMMARY ---
..... Medication Administration Record [facility] [address] [place] [address] Patient: REJI MAYS Visit ID: [id number] 41y, M Weight: 63.5 kg Height/Length: 69 in BMI: 20.7 ALLERGIES: Hydrocodone, Phenergan Start 19:57 11/15/2016 Sheriff Long R.N., Stop 21:31 11/15/2016 Sheriff Long R.N. Medication Administered: IV NS (SALINE), Dose: IV Fluids, Rate: 1000 mL/hr, Dispensed: 1000 mL bag, Site: #1 right forearm. Medication Ordered: IV NS : initial bolus 1000 mL (1000 mL/hr), then 1000 mL/hr for X1 (NOW); Owen. Given 20:11/15/2016 Sheriff Long R.N. Medication Administered: HALDOL [IVP] (HALOPERIDOL LACTATE), Dose: 2 mg IVP, Site: #1 right forearm. Medication Ordered: Haldol IV 2 mg (HIGH ALERT MEDICATION, NOW). Given 20:11/15/2016 Sheriff Long R.N. Medication Administered: REGLAN [IVP] (METOCLOPRAMIDE HCL), Dose: 10 mg IVP, Site: #1 right forearm. Medication Ordered: Reglan IV 10 mg (NOW). Given 20:11/15/2016 Sheriff Long R.N. Medication Administered: TORADOL [IVP], Dose: 30 mg IVP, Site: #1 right forearm. Medication Ordered: Toradol IV 30 mg (NOW). Given 20:11/15/2016 Sheriff Long R.N. Medication Administered: BENADRYL [IVP] (DIPHENHYDRAMINE HCL), Dose: 25 mg IVP, Site: #1 right forearm. Medication Ordered: Benadryl IV 25 mg (NOW). Given 20:11/15/2016 Sheriff Long R.N. Medication Administered: ATIVAN [IVP] (LORAZEPAM), Dose: 2 mg IVP, Site: #1 right forearm. Medication Ordered: Ativan IV 2 mg (HIGH ALERT MEDICATION, NOW). Given 20:38 11/15/2016 Sheriff Long R.NJesusita Medication Administered: ZOFRAN [IVP] (ONDANSETRON HCL), Dose: 8 mg IVP, Site: #1 right forearm. Medication Ordered: Zofran IV 8 mg (NOW). Given 21:14 11/15/2016 Sheriff Long R.N. Medication Administered: DILAUDID [IVP] (HYDROMORPHONE HCL PF), Dose: 1 mg IVP, Site: #1 right forearm. Medication Ordered: Dilaudid IV 1 mg (HIGH ALERT MEDICATION, NOW). Given 21:31 11/15/2016 Sheriff Long R.N. Medication Administered: DILAUDID [IVP] (HYDROMORPHONE HCL PF), Dose: 1 mg IVP, Site: #1 right forearm. Medication Ordered: Dilaudid IV 1 mg (HIGH ALERT MEDICATION, NOW).
--- NOTE | 2016-11-15 22:46 | ED MED RECONCILIATION SUMMARY ---
Patient: REJI MAYS Medication Reconciliation Report [facility] VisitID: [id number] [address] [place] [address] 41y, M Registration Date/Time: 11/15/2016 Weight: 63.5 kg Height/Length: 69 in. BMI: 20.7 ALLERGIES: Hydrocodone, Phenergan The patient's Home Medications are listed below: THE FOLLOWING MEDICATIONS NEED TO BE RECONCILED: Bentyl Oral Lasix Oral Lisinopril Oral Percocet Oral Zofran Oral The source(s) of the original Home Medication information: Not obtained. The following Medications were given to the patient in the Emergency Department: IV NS IV Fluids bolus 0, then 1000 mL/hr, administered: 11/15/2016 7:57:00 PM HALDOL [IVP] IVP 2 mg, administered: 11/15/2016 8:08:00 PM Reglan [IVP] IVP 10 mg, administered: 11/15/2016 8:08:00 PM Toradol [IVP] IVP 30 mg, administered: 11/15/2016 8:09:00 PM Benadryl [IVP] IVP 25 mg, administered: 11/15/2016 8:09:00 PM Ativan [IVP] IVP 2 mg, administered: 11/15/2016 8:27:00 PM Zofran [IVP] IVP 8 mg, administered: 11/15/2016 8:38:00 PM Dilaudid [IVP] IVP 1 mg, administered: 11/15/2016 9:14:00 PM Dilaudid [IVP] IVP 1 mg, administered: 11/15/2016 9:31:00 PM The following Medications were prescribed to the patient: Reglan 10 mg tablets: take 1 orally every 8 hours for 3 days as needed for nausea or vomiting. Dispense ten (10). -- Francie Conteh P.AMaddie Zofran ODT 4 mg: take 1 orally every 6 hours for 3 days as needed for nausea. Dispense ten (10). One refill. -- Francie Conteh P.Abelino
--- NOTE | 2016-11-15 22:46 | ED DISCHARGE INSTRUCTIONS ---
Patient: REJI MAYS General Instructions [facility] VisitID: [id number] [place] [address] 41y, M Registration Date/Time: 11/15/2016 Chronic generalized abdominal pain of unknown cause. INSTRUCTIONS Drink plenty of fluids. Prescription Medications: Reglan 10 mg tablets: take 1 orally every 8 hours for 3 days as needed for nausea or vomiting. Dispense ten (10). Zofran ODT 4 mg: take 1 orally every 6 hours for 3 days as needed for nausea. Dispense ten (10). One refill. Follow-up: Follow up with a highway landscape architect. ADDITIONAL INFORMATION Abdominal Pain,Uncertain Cause [Male] Based on your visit today, the exact cause of your abdominalpain is not clear. Your exam and tests do not indicate a dangerous cause at this time. However, the signs of a serious problem may take more time to appear. Although your evaluation was reassuring today, sometimes early in the course of many conditions, exam and lab tests can appear normal. Therefore, it is important for you to watch for any new symptoms or worsening of your condition. Causes It may not be obvious what caused your symptoms. Pay attention to things that do seem to make your symptoms worse or better and discuss this with your doctor when you follow up. Diagnosis The evaluation of abdominal pain in the emergency department may onlyrequire an exam by the doctor or it may include blood, urine or imaging studies, depending on many factors. Sometimes exams and tests can identify a cause but in many cases, a clear cause is not found. Further testing at follow up visits may help to suggest a clear diagnosis. Home Care Rest as much as possible until your next exam. Try to avoid any medications (unless otherwise directed by your doctor), foods, activities, or other factors that you may have contributed to your symptoms. Try to eat foods that you know that you have tolerated well in the past. Certain diets may be recommended for some conditions that cause abdominal pain. However, since the cause of your symptoms may not be clear, discuss your diet more with your primary care provider or specialist for further recommendations. Eating several small meals per day as opposed to 2 or 3 larger meals may help. Monitor closely for anything that may make your symptoms worse or better. Pay close attention to symptoms below that may indicate worsening of your condition. Follow Up and Precautions See your doctoras instructed or sooneror if your symptoms are not improving.In some cases, you may need more testing. When to Seek Medical Attention Contact your doctor or see medical attention ifany of the following occur: Pain is becoming worse You are unable to take your medications due to excessive vomiting Swelling of the abdomen Fever of 100.4F (38C) or higher, or as directed by your health care provider Blood in vomit or bowel movements (dark red or black color) Jaundice (yellow color of eyes and skin) New onset of weakness, dizziness or fainting New onset of chest, arm, back, neck or jaw pain Epigastric Pain (Uncertain Cause) Epigastric pain can be a sign of disease in the upper abdomen. Common causes include: Acid reflux (stomach acid flowing up into the esophagus) Gastritis (irritation of the stomach lining) Peptic Ulcer Disease Inflammation of the pancreas Gallstone Infection in the gallbladder Pain may be dull or burning. It may spread upward to the chest or to the back. There may be other symptoms such as belching, bloating, cramps or hunger pains. There may be weight loss or poor appetite, nausea or vomiting. Since the diagnosis of your pain is not certain yet, further tests will be needed. Sometimes the doctor will treat you for the most likely condition to see if there is improvement before doing further tests. Home Care: Unless told otherwise, you may try antacids (Mylanta or Maalox) help neutralize stomach acid. This may relieve your pain. Take 1-2 tablespoons or tablets one hour after meals and at bedtime. The liquid form coats the stomach better than the chewable tablets and is preferred. If Tagamet (cimetidine), Zantac (ranitidine), or Carafate (sucralfate) has also been prescribed, allow one hour between taking this medicine and taking the antacids. Avoid foods that irritate the stomach. Follow a light diet until you are feeling better. Avoid alcohol, caffeine, and tobacco. Talk to your doctor before taking any [id number] medicine that contains aspirin or an anti-inflammatory drug such as ibuprofen, Advil, Motrin, Naprosyn, or Aleve. Follow Up with your doctor or as advised if you do not improve over the next 48 hours. Get Prompt Medical Attention if any of the following occur: Stomach pain worsens or moves to the right lower part of the abdomen Chest pain appears, or if it worsens or spreads to the chest, back, neck, shoulder, or arm Frequent vomiting (cant keep down liquids) Blood in the stool or vomit (red or black color) Feeling weak or dizzy, fainting, or having trouble breathing Fever of 100.4F (38C) or higher, or as directed by your healthcare provider Abdominal swelling Symptoms With Uncertain Cause [Adult] Based on the exam and any tests that were performed today, the exact cause of your symptoms is not certain. While your condition does not seem serious, the signs of a serious problem may take more time to appear. Therefore, it is important for you to watch for any new symptoms or worsening of your condition.Follow up with your doctor or this facility, as directed.A repeat physical exam or additional testing at a later time may uncover a cause for your symptoms that is not evident today. Home Care: Resume your usual activities and diet when this feels comfortable to do so. Follow Up with your doctor, or as advised by our staff.Contact your doctor sooner if your symptoms do not begin to improve in the next few days. [NOTE: If you had an x-ray, CT scan, ultrasound, or ECG (electrocardiogram), it will be reviewed by a specialist. You will be notified of any new findings that may affect your care.] Get Prompt Medical Attention if any of the following occur: Current symptoms get worse New symptoms appear Clear Liquid Diet Clear liquids are any liquid that you can see through as well as those that are very easy to digest. This is used while the body is recovering from irritation or infection of the stomach or intestinal tract. It may also be used before special procedures or surgery. This diet is to be used no more than three days. You may include the following items. Adults Adults should drink a total of 23 quarts of liquid per day. It may be easier to drink small frequent servings rather than a few large ones. Liquids can include: Fruit juices.Strained orange juice or lemonade (no pulp), apple, grape and cranberry juice, clear fruit drinks, sports drinks Beverages.Sport drinks, sodas, mineral water (plain or flavored), tea, black coffee, liquid gelatin (add twice the recommended amount of water) Soups.Clear broth, consomm, bouillon Desserts.Plain gelatin, popsicles, fruit juice bars Children Over 2 years old The following liquids are acceptable for children over age 2: Fruit juices.Strained orange juice or lemonade (no pulp), apple, grape and cranberry juice, clear fruit drinks Beverages. Sports drinks, sodas, mineral water (plain or flavored), tea, liquid gelatin (add twice the recommended amount of water) Soups. Clear broth, consomm, bouillon Desserts. Plain gelatin, popsicles, fruit juice bars Children under 2 years old Oral rehydration fluids such are available at drug stores and most grocery stores without a prescription. You have been given the following additional information: Abdominal Pain, Unknown Cause, (Male) Epigastric Pain (Uncertain Cause) Symptoms With Uncertain Cause Diet, Clear Liquid (Electronically signed by Francie Conteh P.A.-C 11/15/2016 22:46)
== END 2016-11-15 21:44 | disposition home or self-care (01) ==
LOC: ED SRH 19:39
DX: R10.84 Generalized abdominal pain (principal); I10 Essential (primary) hypertension; I50.9 Heart failure, unspecified; Z79.891 Long term (current) use of opiate analgesic; Z79.899 Other long term (current) drug therapy; Z88.5 Allergy status to narcotic agent; Z88.8 Allergy status to other drugs, medicaments and biological substances; Z72.0 Tobacco use
CPT/HCPCS: 90004; 90100; 93004; 95059

== ENCOUNTER 2016-11-16 19:06 | Emergency (ER) | payer OTHER ==
--- NOTE | 2016-11-16 21:40 | ED ORDER SUMMARY ---
..... Patient: REJI MAYS OrderSheet [facility] VisitID: [id number] [place] [address] 41y, M Registration Date/Time: 11/16/2016 ORDER SHEET Weight: 63.5 kg (stated) Allergies: Hydrocodone, Phenergan GENERAL ORDERS: CBC w Diff Urgent (19:19 11/16/2016 EKoroleva P.A.-C) (Ack 19:30 CHagerty ER Dietetic Technician) (19:51 JQuivey R.N.) BNP Urgent (19:32 11/16/2016 EKoroleva P.A.-C) (Ack 19:33 CHagerty ER Dietetic Technician) (19:51 JQuivey R.N.) MEDICATION ORDERS: Percocet PO 5/325 mg (HIGH ALERT MEDICATION, NOW) (20:26 11/16/2016 EKoroleva P.A.-C) (Ack 20:34 JSanders R.N.) (20:36 JSanders R.N.) IV FLUIDS: IV NS : initial bolus 1000 mL (1000 mL/hr), then 1000 mL/hr for X1 (NOW); Owen (19:23 11/16/2016 EKoroleva P.A.-C) (19:32 JQuivey R.N.) Haldol IV 3 mg (HIGH ALERT MEDICATION, NOW) (19:23 11/16/2016 EKoroleva P.A.-C) (19:51 JQuivey R.N.) Reglan IV 10 mg (NOW) (19:23 11/16/2016 EKoroleva P.A.-C) (19:48 JQuivey R.N.) Zofran IV 8 mg (NOW) (19:11/16/2016 EKoroleva P.A.-C) (19:47 JQuivey R.N.) Toradol IV 30 mg (NOW) (19:11/16/2016 EKoroleva P.A.-C) (19:50 JQuivey R.N.) Benadryl IV 50 mg (NOW) (19:11/16/2016 Raul Pelletier) (19:49 Michelle TeresaN.) Ativan IV 2 mg (HIGH ALERT MEDICATION, NOW) (19:23 11/16/2016 Raul Pelletier) (19:49 Michelle Elizalde.N.) Dilaudid IV 2 mg (HIGH ALERT MEDICATION, NOW) (21:37 11/16/2016 Raul Pelletier) (22:05 Natanael Caballero) ORDER SHEET NOTES: [Electronically signed by Daren Walton R.N. (22:20 11/16/2016)] [Electronically signed by Francie Conteh P.A.-C (22:42 11/16/2016)] [Electronically locked/signed by Daren Walton R.N. (22:20 11/16/2016)]
--- NOTE | 2016-11-16 21:40 | ED CLINICAL REPORT ---
Clinical Report - Physicians/Mid Levels [facility] [address] [place] [address] 11/16/2016 19:05 [id number] Time Seen: 19:20 Nov 16 2016. Arrived- By private vehicle. Historian- patient. HISTORY OF PRESENT ILLNESS Chief Complaint: ABDOMINAL PAIN. It is described as "pain" and it is described as located in the upper abdomen and in the periumbilical area. This started just prior to arrival and is still present. The patient has had nausea and vomiting. (Patient seen in emergency department yesterday, with improvement of symptoms last night, had potatoes and chicken upon arrival home, worsening of symptoms midafternoon today. Reports emesis and abdominal pain. Reports the same as yesterday in regard to his symptoms. He denies any fevers.). REVIEW OF SYSTEMS No constipation, black stools, difficulty with urination, pain with urination or urinary frequency. No fever, headache, sore throat, chest pain or difficulty breathing. No chills. All systems otherwise negative, except as recorded above. SOCIAL HISTORY Smoker- current status unknown. Alcohol use. (1-2 month). ADDITIONAL NOTES The nursing notes have been reviewed. PHYSICAL EXAM Vital Signs: 11/16/2016 19:11 BP: 123/96. HR: 123. RR: 18. O2 saturation: 99%. Temp: 98.3 F. Pain level now: 9/10. Appearance: Alert. No acute distress. Eyes: Eyes normal inspection. ENT: Ears normal. Nose normal. Neck: Normal inspection. Neck supple. CVS: Normal heart rate and rhythm. Heart sounds normal. No cardiac murmur or extra heart sounds. Respiratory: No respiratory distress. Breath sounds normal. Abdomen: Soft. Mild tenderness in the epigastric area. Back: Normal inspection. No CVA tenderness. Skin: Skin warm. Normal skin color. Neuro: Oriented X 3. LABS, X-RAYS, AND EKG Laboratory Tests: CBC w Diff: (ANGE: 11/16/2016 19:25) ( MsgRcvd 11/16/2016 19:46) Final results Test Result Flag Units (Reference) WHITE BLOOD COUNT 8.3 K/uL (4.5-11.5) RED BLOOD COUNT 4.22 L M/uL (4.50-5.90) HEMOGLOBIN 13.7 gm/dL (13.5-17.5) HEMATOCRIT 40.7 L % (41.0-53.0) MEAN CELL VOLUME 97 fL (80-100) MEAN CORPUSCULAR HGB 32 pg (26-34) MEAN CORPUSCULAR HGB CONC 34 g/dL (31-37) RED CELL DISTRIBUTION WIDTH 13.8 % (11.6-14.8) PLATELET COUNT 338 K/uL (150-400) NEUTROPHIL % 71.5 % (50-75) LYMPH % 21.5 L % (25-40) MONO % 6.5 % (3-14) EOSINOPHIL % 0.2 % (0-4) BASOPHIL % 0.3 % (0-2) BNP: (ANGE: 11/16/2016 19:25) ( MsgRcvd 11/16/2016 20:07) Final results Test Result Flag Units (Reference) B-TYPE NATRIURETIC PEPTIDE 85.9 pg/ml (5-100) . PROGRESS AND PROCEDURES Course of Care: Patient afebrile normal cardiac unremarkable CBC. Concerning the patient continues to have recurrence of symptoms, third visit in the last 7 days for the patient. Unsure if this is diet related. Lengthy discussion with patient and family in regard to "only medication that works is Dilaudid" this is concerning as certainly although a opiate medication this is a last resort, and does not treat the problem, rather only the pain. Discussed this in detail, family and patient was frustrated. Discussed in regard to this being a chronic illness, patient family seemed to understand, however remained frustrated that patient is in pain. Patient did receive IV: Haldol, Ativan, Toradol, Benadryl, Reglan, Zofran IV fluid in the emergency department, as well as po percocet. Does not acutely appear to have any exacerbation of his congestive heart failure. Does not appear volume overloaded or dehydrated. During the time in the ED, the following DDX were considered: acute surgical abdomen, hemodynamic or metabolic instability, dehydration, gastroenteritis-viral, food borne, or bacterial, food intolerance, irritable or inflammatory bowel, infection, sepsis. 11/16/2016 22:16 HR: 89. RR: 20. O2 saturation: 99%. Pain level now: 01/12. 11/16/2016 22:05 BP: 138/93. HR: 94. RR: 24. O2 saturation: 98%. Pain level now: 01/12. Patient is stable. Symptoms better. Patient/family counseled. Disposition: Discharged. Condition: good. CLINICAL IMPRESSION Generalized abdominal pain. (acute on chronic exacerbation). INSTRUCTIONS Drink plenty of fluids. Follow-up: Follow up with your doctor in two days. (Electronically signed by Francie Conteh P.A.-C 11/16/2016 22:42)
--- NOTE | 2016-11-16 21:40 | ED ORDER SUMMARY ---
..... Patient: REJI MASY OrderSheet [facility] VisitID: [id number] [place] [address] 41y, M Registration Date/Time: 11/16/2016 ORDER SHEET Weight: 63.5 kg (stated) Allergies: Hydrocodone, Phenergan GENERAL ORDERS: CBC w Diff Urgent (19:19 11/16/2016 EKoroleva P.A.-C) (Ack 19:30 CHagerty ER Motorboat Operator) (19:51 JQuivey R.N.) BNP Urgent (19:32 11/16/2016 EKoroleva P.A.-C) (Ack 19:33 CHagerty ER Motorboat Operator) (19:51 JQuivey R.N.) MEDICATION ORDERS: Percocet PO 5/325 mg (HIGH ALERT MEDICATION, NOW) (20:26 11/16/2016 EKoroleva P.A.-C) (Ack 20:34 JSanders R.N.) (20:36 JSanders R.N.) IV FLUIDS: IV NS : initial bolus 1000 mL (1000 mL/hr), then 1000 mL/hr for X1 (NOW); Owen (19:23 11/16/2016 EKoroleva P.A.-C) (19:32 JQuivey R.N.) Haldol IV 3 mg (HIGH ALERT MEDICATION, NOW) (19:23 11/16/2016 EKoroleva P.A.-C) (19:51 JQuivey R.N.) Reglan IV 10 mg (NOW) (19:23 11/16/2016 EKoroleva P.A.-C) (19:48 JQuivey R.N.) Zofran IV 8 mg (NOW) (19:11/16/2016 EKoroleva P.A.-C) (19:47 JQuivey R.N.) Toradol IV 30 mg (NOW) (19:11/16/2016 EKoroleva P.A.-C) (19:50 JQuivey R.N.) Benadryl IV 50 mg (NOW) (19:11/16/2016 Raul Pelletier) (19:49 Michelle TeresaN.) Ativan IV 2 mg (HIGH ALERT MEDICATION, NOW) (19:23 11/16/2016 Raul Pelletier) (19:49 Michelle Elizalde.N.) Dilaudid IV 2 mg (HIGH ALERT MEDICATION, NOW) (21:37 11/16/2016 Raul Pelletier) (22:05 Natanael Caballero) ORDER SHEET NOTES: [Electronically signed by Daren Walton R.N. (22:20 11/16/2016)] [Electronically signed by Francie Conteh P.A.-C (22:42 11/16/2016)] [Electronically locked/signed by Daren Walton R.N. (22:20 11/16/2016)]
--- NOTE | 2016-11-16 21:40 | ED NURSING NOTES ---
Clinical Report - Nurses [facility] [address] [place] [address] 11/16/2016 19:05 Patient: REJI MAYS TRIAGE Triage time 19:11. Acuity: LEVEL 4. Chief Complaint: ABDOMINAL PAIN, NAUSEA, VOMITING and DIARRHEA and (Was seen in ER yesterday, dx with cyclic vomiting syndrome; was able to get pain under control upon d/c but it has returned.). Alert. SEPSIS SCREEN: Sepsis Screen: negative. Negative (no infection suspected/documented). --19:17 Konrad Mak R.N. 19:11 11/16/16. BP: 123/96 (regular adult cuff) taken on the left arm, via an automated monitor, while sitting. HR: 123 (normal rate). RR: 18 (regular, unlabored and normal). O2 saturation: 99% on room air. Temp: 98.3 F (oral). Pain level now: 03/15. --19:17 Konrad Mak R.N. Weight: 63.5 kg stated. Height/Length: 69 inches Per Patient. BMI: 20.7. --19:14 Konrad Mak R.N. Medications Bentyl Oral. Lasix Oral. Lisinopril Oral. Percocet Oral. Zofran Oral. --19:12 Konrad Mak R.N. Vistaril Oral. --19:13 Konrad Mak R.N. Metoprolol Tartrate Oral. --19:13 Konrad Mak R.N. Reglan Oral. --19:13 Konrad aMk R.N. Medication/allergy information source: the patient. --19:17 Konrad Mak R.N. Allergies Hydrocodone. Phenergan. --19:12 Konrad Mak R.N. History Arrived by private vehicle. Historian: patient. This is a recurrent problem. He has had chills. Reports experiencing sweating episodes. No fever. Last oral intake by patient was last night. 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 SOCIAL HX: Current every day light tobacco smoker (cigarette)- less than 1/2 a pack per day. Alcohol use. (Last drink 1-2 months ago). No drug use. He has not traveled outside the [place] The patient was not exposed to MRSA. No infectious disease exposure. ABUSE ASSESSMENT: Abuse assessment: The patient was asked "Do you feel safe in your home?" and "Has anyone hurt you or threatened to hurt you?". No report of abuse. SELF HARM ASSESSMENT: A self harm assessment was performed. The patient answered "yes" to the question "Have you recently felt down, depressed, or hopeless?", "Have you noticed less interest or pleasure in doing things?" and "Do you have thoughts of harming or killing yourself?" and "no" to the question "Are you here because you tried to hurt yourself?", "Have you ever tried to hurt yourself before today?", "Have you recently had thoughts about harming or killing others?" and "Do you have any dangerous items in your possession?". (Reji says when the pain is this bad he wants to kill himself.). FALL RISK ASSESSMENT: Fall risk assessment completed. No fall risk identified. NUTRITIONAL RISK ASSESSMENT: The nutritional risk assessment revealed no deficiencies. FUNCTIONAL ASSESSMENT: Functional assessment: no impairments noted. LEARNING NEEDS ASSESSMENT: The learning needs assessment revealed no barriers. SKIN INTEGRITY ASSESSMENT: Skin integrity risk assessment completed. No skin integrity risk identified. --19:17 Konrad Mak RJesusitaN. PROBLEMS: Abdominal Pain. Dehydration. Congestive Heart Failure. Cyclical vomiting syndrome. Hypertension. --19:13 Konrad Mak R.N. ADDITIONAL SURGERIES: Cholecystectomy. Hand surgery . Hernia inguinal . Hernia Repair. Inguinal Hernia Repair. Tympanostomy Tubes. --19:13 Konrad Mak RJesusitaN. Assessment GENERAL / NEURO / PSYCH: Alert. Oriented X 4. He appears uncomfortable. Zenia Coma Scale: 15- eyes open spontaneously (4); best verbal response- oriented x 4 (5); best motor response- obeys commands (6). Patient appears calm and cooperative. RESPIRATORY: No respiratory distress. Respirations not labored. SKIN: Skin is warm and dry. --19:17 Konrad Mak R.N. Interventions ID band on patient. To treatment room. --19:17 Konrad Mak R.N. PHYSICAL ASSESSMENT Ambulatory to room. ( he patient states that he was seen yesterday for uncontrollable vomiting, stating that it is "my cyclic vomiting again." Patient states having diarrhea and vomiting, stating that it is similar to previous episodes.). GENERAL / NEURO / PSYCH: Alert. Oriented X 4. Appears in pain and anxious. HEENT: Mucous membranes are pink. RESPIRATORY: No respiratory distress. CVS: Capillary refill less than 2 seconds. GI / : Abdominal tenderness diffusely. SKIN: Skin is warm and dry. --19:27 Daren Walton R.N. NURSING PROGRESS NOTES The initial plan of care for this patient has been created This plan of care was discussed with the patient. Pulse oximeter and NIBP monitor placed on patient. Patient gowned. Reassurance given to the patient. Two patient identifiers checked. Call light placed in reach. Side rails up x 1. Bed placed in lowest position. Brakes of bed on. --19:17 Konrad Mak R.N. 19:25 11/16/2016 Site #1 started via IV in the right hand with an 20g angiocath, with aseptic technique and good blood return; one attempt. Blood drawn: rainbow set. Labeled in the presence of the patient and sent to the lab. Saline lock flushed with 10 mL saline. --19:32 Brandon Franco R.N. 19:26 11/16/2016 Two (2) unsuccessful IV access attempts including the right forearm and left antecubital space. Applied bandage and manual pressure. --19:28 Daren Walton R.N. 19:32 11/16/2016 Started bag #1 1000 mL IV Fluids IV NS (Saline); at 1000 mL/hr over 1 hour(s) via site #1 --19:32 Brandon Franco R.N. 19:33 11/16/2016 Zofran (Ondansetron HCl) IVP 8 mg given over 2 minute(s) via site #1. Allergies verified and confirmed 5 rights. IV patency established. IV site checked: no pain, redness, or swelling. IV flushed thoroughly pre- and post-medication administration. --19:47 Brandon Franco R.N. 19:35 11/16/2016 Reglan (Metoclopramide HCl) IVP 10 mg given over 2 minute(s) via site #1. Allergies verified and confirmed 5 rights. IV patency established. IV site checked: no pain, redness, or swelling. IV flushed thoroughly pre- and post-medication administration. --19:48 Brandon Franco R.N. 19:37 11/16/2016 Benadryl (DiphenhydrAMINE HCl) IVP 50 mg given over 2 minute(s) via site #1. Allergies verified, confirmed 5 rights and sedative warning given to the patient and patient's family. IV patency established. IV site checked: no pain, redness, or swelling. IV flushed thoroughly pre- and post-medication administration. --19:49 Brandon Franco R.N. 19:39 11/16/2016 Ativan (LORazepam) IVP 2 mg given over 2 minute(s) via site #1. Allergies verified, confirmed 5 rights and sedative warning given to the patient and patient's family. IV patency established. IV site checked: no pain, redness, or swelling. IV flushed thoroughly pre- and post-medication administration. --19:49 Brandon Franco R.N. 19:41 11/16/2016 Toradol IVP 30 mg given over 2 minute(s) via site #1. Allergies verified and confirmed 5 rights. IV patency established. IV site checked: no pain, redness, or swelling. IV flushed thoroughly pre- and post-medication administration. --19:50 Brandon Franco R.N. 19:44 11/16/2016 HALDOL (Haloperidol Lactate) IVP 3 mg given over 2 minute(s) via site #1. Allergies verified, confirmed 5 rights and sedative warning given to the patient. IV patency established. IV site checked: no pain, redness, or swelling. IV flushed thoroughly pre- and post-medication administration. --19:51 Brandon Franco R.N. ( ice water given to patient for PO challenge). --21:01 Daren Walton R.N. ( patient awake and oriented, talking to family at bedside). --22:06 Daren Walton R.N. 20:35 11/16/2016 IV Fluids IV NS Discontinued: completed. Total amount infused: 1000 mL. IV patency established. IV site checked: no pain, redness, or swelling. IV flushed thoroughly. --22:19 Daren Walton R.N. 20:36 11/16/2016 Percocet (Oxycodone-Acetaminophen) PO 5/325 mg Tablets 1 tab given. Allergies verified, confirmed 5 rights and sedative warning given to the patient. --20:36 Cheryl Adams R.N. 22:02 11/16/2016 Dilaudid (HYDROmorphone HCl PF) IVP 2 mg given over 2 minute(s) via site #1. Allergies verified, confirmed 5 rights and sedative warning given to the patient and patient's family. IV patency established. IV site checked: no pain, redness, or swelling. IV flushed thoroughly pre- and post-medication administration. IVP given by RN. --22:05 Daren Walton R.N. ( Second bolus of fluid was held by verbal request of attending PA, due to patient's history of heart failure.). --22:20 Daren aWlton R.N. DISPOSITION / DISCHARGE 22:16 11/16/16. HR: 89. RR: 20 (regular and unlabored). O2 saturation: 99% on room air. Pain level now: 01/12. --22:18 Daren Walton R.N. Departure time: 22:15. Condition at departure: stable. No learning barriers present. Discharge instructions provided and reviewed with the patient and parent. Reviewed warnings (sedation warning). Treatments reviewed. Reviewed referrals for followup. Patient and parent verbalized understanding. Written instructions provided in Welsh. The patient was discharged home and accompanied by parent. He left the Emergency Department ambulatory and via private vehicle. Parent driving. --22:18 Daren Walton R.N. 22:05 11/16/16. BP: 138/93. HR: 94. RR: 24. O2 saturation: 98% on room air. Pain level now: 01/12. --22:18 Daren Walton R.N. 22:14 11/16/2016 Site #1 removed upon discharge. Manual pressure and bandage applied. --22:18 Daren Walton R.N. Locked/Released at 11/16/2016 22:20 by Daren Walton R.N.
--- NOTE | 2016-11-16 22:42 | ED MAR SUMMARY ---
..... Medication Administration Record [facility] [address] [place] [address] Patient: REJI MAYS Visit ID: [id number] 41y, M Weight: 63.5 kg Height/Length: 69 in BMI: 20.7 ALLERGIES: Hydrocodone, Phenergan Start 19:32 11/16/2016 Brandon Franco RGume, Stop 20:35 11/16/2016 Daren Walton R.N. Medication Administered: IV NS (SALINE), Dose: IV Fluids over 1 hour(s), Rate: 1000 mL/hr, Dispensed: 1000 mL bag, Site: #1 right hand. Medication Ordered: IV NS : initial bolus 1000 mL (1000 mL/hr), then 1000 mL/hr for X1 (NOW); Owen. Given 19:33 11/16/2016 Brandon Franco R.N. Medication Administered: ZOFRAN [IVP] (ONDANSETRON HCL), Dose: 8 mg IVP over 2 minute(s), Site: #1 right hand. Medication Ordered: Zofran IV 8 mg (NOW). Given 19:35 11/16/2016 Brandon Franco R.N. Medication Administered: REGLAN [IVP] (METOCLOPRAMIDE HCL), Dose: 10 mg IVP over 2 minute(s), Site: #1 right hand. Medication Ordered: Reglan IV 10 mg (NOW). Given 19:37 11/16/2016 Brandon Franco R.N. Medication Administered: BENADRYL [IVP] (DIPHENHYDRAMINE HCL), Dose: 50 mg IVP over 2 minute(s), Site: #1 right hand. Medication Ordered: Benadryl IV 50 mg (NOW). Given 19:39 11/16/2016 Brandon Franco R.N. Medication Administered: ATIVAN [IVP] (LORAZEPAM), Dose: 2 mg IVP over 2 minute(s), Site: #1 right hand. Medication Ordered: Ativan IV 2 mg (HIGH ALERT MEDICATION, NOW). Given 19:41 11/16/2016 Brandon Franco R.N. Medication Administered: TORADOL [IVP], Dose: 30 mg IVP over 2 minute(s), Site: #1 right hand. Medication Ordered: Toradol IV 30 mg (NOW). Given 19:44 11/16/2016 Brandon Franco R.N. Medication Administered: HALDOL [IVP] (HALOPERIDOL LACTATE), Dose: 3 mg IVP over 2 minute(s), Site: #1 right hand. Medication Ordered: Haldol IV 3 mg (HIGH ALERT MEDICATION, NOW). Given 20:36 11/16/2016 Cheryl Adams RJesusitaN. Medication Administered: PERCOCET [PO] (OXYCODONE-ACETAMINOPHEN), Dose: 1 tab 5/325 mg Tablets PO. Medication Ordered: Percocet PO 5/325 mg (HIGH ALERT MEDICATION, NOW). Given 22:02 11/16/2016 Daren Walton R.N. Medication Administered: DILAUDID [IVP] (HYDROMORPHONE HCL PF), Dose: 2 mg IVP over 2 minute(s), Site: #1 right hand. Medication Ordered: Dilaudid IV 2 mg (HIGH ALERT MEDICATION, NOW).
--- NOTE | 2016-11-16 22:42 | ED MED RECONCILIATION SUMMARY ---
Patient: REJI MAYS Medication Reconciliation Report [facility] VisitID: [id number] [address] [place] [address] 41y, M Registration Date/Time: 11/16/2016 Weight: 63.5 kg Height/Length: 69 in. BMI: 20.7 ALLERGIES: Hydrocodone, Phenergan The patient's Home Medications are listed below: THE FOLLOWING MEDICATIONS NEED TO BE RECONCILED: Bentyl Oral Lasix Oral Lisinopril Oral Metoprolol Tartrate Oral Percocet Oral Reglan Oral Vistaril Oral Zofran Oral The source(s) of the original Home Medication information: patient The following Medications were given to the patient in the Emergency Department: IV NS IV Fluids bolus 0, then 1000 mL/hr, administered: 11/16/2016 7:32:00 PM Zofran [IVP] IVP 8 mg, administered: 11/16/2016 7:33:00 PM Reglan [IVP] IVP 10 mg, administered: 11/16/2016 7:35:00 PM Benadryl [IVP] IVP 50 mg, administered: 11/16/2016 7:37:00 PM Ativan [IVP] IVP 2 mg, administered: 11/16/2016 7:39:00 PM Toradol [IVP] IVP 30 mg, administered: 11/16/2016 7:41:00 PM HALDOL [IVP] IVP 3 mg, administered: 11/16/2016 7:44:00 PM Percocet [PO] PO 1 tab, administered: 11/16/2016 8:36:00 PM Dilaudid [IVP] IVP 2 mg, administered: 11/16/2016 10:02:00 PM The following Medications were prescribed to the patient: None.
--- NOTE | 2016-11-16 22:42 | ED MAR SUMMARY ---
..... Medication Administration Record [facility] [address] [place] [address] Patient: REJI MAYS Visit ID: [id number] 41y, M Weight: 63.5 kg Height/Length: 69 in BMI: 20.7 ALLERGIES: Hydrocodone, Phenergan Start 19:32 11/16/2016 Brandon Franco RGume, Stop 20:35 11/16/2016 Daren Walton R.N. Medication Administered: IV NS (SALINE), Dose: IV Fluids over 1 hour(s), Rate: 1000 mL/hr, Dispensed: 1000 mL bag, Site: #1 right hand. Medication Ordered: IV NS : initial bolus 1000 mL (1000 mL/hr), then 1000 mL/hr for X1 (NOW); Owen. Given 19:33 11/16/2016 Brandon Franco R.N. Medication Administered: ZOFRAN [IVP] (ONDANSETRON HCL), Dose: 8 mg IVP over 2 minute(s), Site: #1 right hand. Medication Ordered: Zofran IV 8 mg (NOW). Given 19:35 11/16/2016 Brandon Franco R.N. Medication Administered: REGLAN [IVP] (METOCLOPRAMIDE HCL), Dose: 10 mg IVP over 2 minute(s), Site: #1 right hand. Medication Ordered: Reglan IV 10 mg (NOW). Given 19:37 11/16/2016 Brandon Franco R.N. Medication Administered: BENADRYL [IVP] (DIPHENHYDRAMINE HCL), Dose: 50 mg IVP over 2 minute(s), Site: #1 right hand. Medication Ordered: Benadryl IV 50 mg (NOW). Given 19:39 11/16/2016 Brandon Franco R.N. Medication Administered: ATIVAN [IVP] (LORAZEPAM), Dose: 2 mg IVP over 2 minute(s), Site: #1 right hand. Medication Ordered: Ativan IV 2 mg (HIGH ALERT MEDICATION, NOW). Given 19:41 11/16/2016 Brandon Franco R.N. Medication Administered: TORADOL [IVP], Dose: 30 mg IVP over 2 minute(s), Site: #1 right hand. Medication Ordered: Toradol IV 30 mg (NOW). Given 19:44 11/16/2016 Brandon Franco R.N. Medication Administered: HALDOL [IVP] (HALOPERIDOL LACTATE), Dose: 3 mg IVP over 2 minute(s), Site: #1 right hand. Medication Ordered: Haldol IV 3 mg (HIGH ALERT MEDICATION, NOW). Given 20:36 11/16/2016 Cheryl Adams RJesusitaN. Medication Administered: PERCOCET [PO] (OXYCODONE-ACETAMINOPHEN), Dose: 1 tab 5/325 mg Tablets PO. Medication Ordered: Percocet PO 5/325 mg (HIGH ALERT MEDICATION, NOW). Given 22:02 11/16/2016 Daren Walton R.N. Medication Administered: DILAUDID [IVP] (HYDROMORPHONE HCL PF), Dose: 2 mg IVP over 2 minute(s), Site: #1 right hand. Medication Ordered: Dilaudid IV 2 mg (HIGH ALERT MEDICATION, NOW).
--- NOTE | 2016-11-16 22:42 | ED DISCHARGE INSTRUCTIONS ---
Patient: REJI MAYS General Instructions [facility] VisitID: [id number] [place] [address] 41y, M Registration Date/Time: 11/16/2016 Generalized abdominal pain. (acute on chronic exacerbation). INSTRUCTIONS Drink plenty of fluids. Follow-up: Follow up with your doctor in two days. ADDITIONAL INFORMATION Abdominal Pain,Uncertain Cause [Male] Based on your visit today, the exact cause of your abdominalpain is not clear. Your exam and tests do not indicate a dangerous cause at this time. However, the signs of a serious problem may take more time to appear. Although your evaluation was reassuring today, sometimes early in the course of many conditions, exam and lab tests can appear normal. Therefore, it is important for you to watch for any new symptoms or worsening of your condition. Causes It may not be obvious what caused your symptoms. Pay attention to things that do seem to make your symptoms worse or better and discuss this with your doctor when you follow up. Diagnosis The evaluation of abdominal pain in the emergency department may onlyrequire an exam by the doctor or it may include blood, urine or imaging studies, depending on many factors. Sometimes exams and tests can identify a cause but in many cases, a clear cause is not found. Further testing at follow up visits may help to suggest a clear diagnosis. Home Care Rest as much as possible until your next exam. Try to avoid any medications (unless otherwise directed by your doctor), foods, activities, or other factors that you may have contributed to your symptoms. Try to eat foods that you know that you have tolerated well in the past. Certain diets may be recommended for some conditions that cause abdominal pain. However, since the cause of your symptoms may not be clear, discuss your diet more with your primary care provider or specialist for further recommendations. Eating several small meals per day as opposed to 2 or 3 larger meals may help. Monitor closely for anything that may make your symptoms worse or better. Pay close attention to symptoms below that may indicate worsening of your condition. Follow Up and Precautions See your doctoras instructed or sooneror if your symptoms are not improving.In some cases, you may need more testing. When to Seek Medical Attention Contact your doctor or see medical attention ifany of the following occur: Pain is becoming worse You are unable to take your medications due to excessive vomiting Swelling of the abdomen Fever of 100.4F (38C) or higher, or as directed by your health care provider Blood in vomit or bowel movements (dark red or black color) Jaundice (yellow color of eyes and skin) New onset of weakness, dizziness or fainting New onset of chest, arm, back, neck or jaw pain Clear Liquid Diet Clear liquids are any liquid that you can see through as well as those that are very easy to digest. This is used while the body is recovering from irritation or infection of the stomach or intestinal tract. It may also be used before special procedures or surgery. This diet is to be used no more than three days. You may include the following items. Adults Adults should drink a total of 23 quarts of liquid per day. It may be easier to drink small frequent servings rather than a few large ones. Liquids can include: Fruit juices.Strained orange juice or lemonade (no pulp), apple, grape and cranberry juice, clear fruit drinks, sports drinks Beverages.Sport drinks, sodas, mineral water (plain or flavored), tea, black coffee, liquid gelatin (add twice the recommended amount of water) Soups.Clear broth, consomm, bouillon Desserts.Plain gelatin, popsicles, fruit juice bars Children Over 2 years old The following liquids are acceptable for children over age 2: Fruit juices.Strained orange juice or lemonade (no pulp), apple, grape and cranberry juice, clear fruit drinks Beverages. Sports drinks, sodas, mineral water (plain or flavored), tea, liquid gelatin (add twice the recommended amount of water) Soups. Clear broth, consomm, bouillon Desserts. Plain gelatin, popsicles, fruit juice bars Children under 2 years old Oral rehydration fluids such are available at drug stores and most grocery stores without a prescription. You have been given the following additional information: Abdominal Pain, Unknown Cause, (Male) Diet, Clear Liquid (Electronically signed by Francie Conteh P.A.-C 11/16/2016 22:42)
--- NOTE | 2016-11-16 22:42 | ED MED RECONCILIATION SUMMARY ---
Patient: REJI MAYS Medication Reconciliation Report [facility] VisitID: [id number] [address] [place] [address] 41y, M Registration Date/Time: 11/16/2016 Weight: 63.5 kg Height/Length: 69 in. BMI: 20.7 ALLERGIES: Hydrocodone, Phenergan The patient's Home Medications are listed below: THE FOLLOWING MEDICATIONS NEED TO BE RECONCILED: Bentyl Oral Lasix Oral Lisinopril Oral Metoprolol Tartrate Oral Percocet Oral Reglan Oral Vistaril Oral Zofran Oral The source(s) of the original Home Medication information: patient The following Medications were given to the patient in the Emergency Department: IV NS IV Fluids bolus 0, then 1000 mL/hr, administered: 11/16/2016 7:32:00 PM Zofran [IVP] IVP 8 mg, administered: 11/16/2016 7:33:00 PM Reglan [IVP] IVP 10 mg, administered: 11/16/2016 7:35:00 PM Benadryl [IVP] IVP 50 mg, administered: 11/16/2016 7:37:00 PM Ativan [IVP] IVP 2 mg, administered: 11/16/2016 7:39:00 PM Toradol [IVP] IVP 30 mg, administered: 11/16/2016 7:41:00 PM HALDOL [IVP] IVP 3 mg, administered: 11/16/2016 7:44:00 PM Percocet [PO] PO 1 tab, administered: 11/16/2016 8:36:00 PM Dilaudid [IVP] IVP 2 mg, administered: 11/16/2016 10:02:00 PM The following Medications were prescribed to the patient: None.
== END 2016-11-16 20:16 | disposition home or self-care (01) ==
LOC: ED SRH 19:06
DX: R10.84 Generalized abdominal pain (principal); I10 Essential (primary) hypertension; Z79.899 Other long term (current) drug therapy; Z79.891 Long term (current) use of opiate analgesic; F17.210 Nicotine dependence, cigarettes, uncomplicated; Z88.5 Allergy status to narcotic agent; Z88.8 Allergy status to other drugs, medicaments and biological substances
CPT/HCPCS: 91320; 95059